=== PATIENT | male | born 1955 | race Caucasian/White ===

== ENCOUNTER 2022-02-02 20:28 | Inpatient (IN) | payer BC ==
[~2022-02-02] VITALS: Ht 177.8 cm; Wt 126.2 kg
[2022-02-02 20:58] LABS: BASOPHILS # (AUTO) 0.1 (0.0-0.1); BASOPHILS % 0.6 % (0.0-1.0); EOSINOPHILS % 0.4 % (0.0-6.0); HEMOGLOBIN 14.5 g/dL (14.0-18.0); LYMPHOCYTES # (AUTO) 1.5 (1.0-3.2); LYMPHOCYTES % 13.5 % (18.0-39.1); MEAN CORPUSCULAR HEMOGLOBIN 28.2 pg (28-32); MEAN CORPUSCULAR HGB CONC 31.5 g/dL (31-35); MEAN CORPUSCULAR VOLUME 89.3 fL (81-99); MONOCYTES # (AUTO) 1.4 (0.2-0.8); MONOCYTES % 12.5 % (4.4-11.3); NEUTROPHILS # (AUTO) 7.8 (2.1-6.9); NEUTROPHILS % 72.4 % (38.7-80.0); PLATELET COUNT 132 x10e3/uL (140-360); RED BLOOD COUNT 5.15 x10e6/uL (4.3-5.7); RED CELL DISTRIBUTION WIDTH 16.1 % (11.7-14.4)
[2022-02-02] MEDS ORDERED: AMIODARONE 900MG 500 ML IV ONE ×2 (21:00→21:15)
[2022-02-02] MEDS ORDERED: AMIODARONE HCL 150 MG/100 ML BAG IV ONE (21:00)
[2022-02-02 21:15] LABS: ALBUMIN 3.5 g/dL (3.5-5.0); ANION GAP 18.9 mmol/L (8-16); CALCIUM 8.9 mg/dL (8.4-10.2); CREATININE, SERUM 1.21 mg/dL (0.72-1.25); POTASSIUM 3.9 mmol/L (3.5-5.1)
[2022-02-02] MEDS ORDERED: AMIODARONE HCL 150MG 100 ML ONE (21:15)
[2022-02-02 21:21] LABS: CREATINE KINASE MB 2.3 ng/mL (0-5.0)
[2022-02-02] MEDS ORDERED: ONDANSETRON HCL INJ 2MG/ML 2ML 2 MG/ML VIAL IV STA ×2 (22:19→22:27)
[2022-02-02] MEDS ORDERED: DEXTROSE 50% SYRINGE 50 ML IV PRN (22:30)
[2022-02-03] VITALS (39 sets, daily range): BP systolic 91–147; BP diastolic 63–133
[2022-02-03] MEDS ORDERED: ONDANSETRON HCL INJ 2MG/ML 2ML 2 MG/ML VIAL IV PRN (04:30)
[2022-02-03] MEDS ORDERED: DEXTROSE 50% SYRINGE 50 ML IV PRN (04:30)
[2022-02-03] MEDS ORDERED: MELATONIN 3 MG TAB PO PRN (04:30)
[2022-02-03] MEDS ORDERED: INSULIN REGULAR, HUMAN 100 UNIT/1 ML SQ SCH (07:30)
[2022-02-03 07:56] LABS: CREATINE KINASE MB 1.8 ng/mL (0-5.0)
[2022-02-03] MEDS: INSULIN LISPRO 100 UNIT/1 ML 3ML VIAL SQ SCH ×4 (08:04→21:00)
[2022-02-03] MEDS: ENOXAPARIN SODIUM INJ 100 MG/ML SYR SC SCH ×2 (08:11→19:43)
[2022-02-03] MEDS: FUROSEMIDE INJ 10 MG/ML 4 ML VIAL IV SCH ×3 (08:34→19:43)
[2022-02-03] MEDS ORDERED: ENOXAPARIN SOD INJ 40 MG/0.4 ML SYR SC SCH (09:00)
[2022-02-03] MEDS ORDERED: LISINOPRIL 2.5 MG TAB PO SCH (09:00)
[2022-02-03] MEDS ORDERED: METOPROLOL SUCCINATE 25 MG TAB XL PO SCH (09:00)
[2022-02-03] MEDS ORDERED: METFORMIN HCL500 MG PO (11:09)
[2022-02-03] MEDS ORDERED: ELIQUIS5 MG PO (11:09)
[2022-02-03] MEDS ORDERED: PRAVASTATIN SOD40 MG PO (11:09)
[2022-02-03] MEDS ORDERED: METOLAZONE5 MG PO (11:09)
[2022-02-03] MEDS ORDERED: METOPROLOL TART50 MG PO (11:09)
[2022-02-03 15:49] LABS: CREATINE KINASE MB 1.7 ng/mL (0-5.0)
[2022-02-03] MEDS: VALSARTAN/SACUBITRIL 24MG/26MG 1 EA TAB PO SCH (19:30)
[2022-02-03] MEDS: ATORVASTATIN 20 MG TAB PO SCH (19:43)
[2022-02-03] MEDS ORDERED: AMIODARONE 900MG 500 ML IV ONE (20:19)
[2022-02-04] VITALS (18 sets, daily range): BP systolic 93–117; BP diastolic 68–88
[2022-02-04 05:03] LABS: BASOPHILS # (AUTO) 0.1 (0.0-0.1); BASOPHILS % 0.9 % (0.0-1.0); EOSINOPHILS # (AUTO) 0.1 (0.0-0.4); EOSINOPHILS % 1.3 % (0.0-6.0); HEMATOCRIT 44.3 % (38.2-49.6); HEMOGLOBIN 14.5 g/dL (14.0-18.0); LYMPHOCYTES % 19.3 % (18.0-39.1); MEAN CORPUSCULAR HEMOGLOBIN 28.4 pg (28-32); MEAN CORPUSCULAR HGB CONC 32.7 g/dL (31-35); MEAN CORPUSCULAR VOLUME 86.9 fL (81-99); MONOCYTES # (AUTO) 1.5 (0.2-0.8); NEUTROPHILS # (AUTO) 6.4 (2.1-6.9); PLATELET COUNT 158 x10e3/uL (140-360); RED CELL DISTRIBUTION WIDTH 15.9 % (11.7-14.4)
[2022-02-04 05:29] LABS: ANION GAP 17.9 mmol/L (8-16); CALCIUM 9.3 mg/dL (8.4-10.2); CREATININE, SERUM 1.04 mg/dL (0.72-1.25)
[2022-02-04 05:40] LABS: POTASSIUM 2.9 mmol/L (3.5-5.1)
[2022-02-04] MEDS ORDERED: POTASSIUM CHLORIDE 20 MEQ TAB CR PO STA (05:45)
[2022-02-04] MEDS ORDERED: POTASSIUM CHLORIDE 20MEQ/100ML 100 ML IV ONE (05:45)
[2022-02-04] MEDS ORDERED: SODIUM CHLORIDE 0.9% 250ML 250 ML ONE ×2 (06:38→21:37)
[2022-02-04] MEDS: INSULIN LISPRO 100 UNIT/1 ML 3ML VIAL SQ SCH ×4 (07:30→20:56)
[2022-02-04] MEDS ORDERED: AMIODARONE HCL 200 MG TAB PO SCH (09:00)
[2022-02-04] MEDS ORDERED: APIXABAN 5 MG TABLET PO SCH (09:00)
[2022-02-04] MEDS: FUROSEMIDE INJ 10 MG/ML 4 ML VIAL IV SCH ×2 (10:05→20:55)
[2022-02-04] MEDS: AMIODARONE HCL 200 MG TAB PO SCH ×2 (10:06→17:16)
[2022-02-04] MEDS: VALSARTAN/SACUBITRIL 24MG/26MG 1 EA TAB PO SCH ×2 (10:06→21:32)
[2022-02-04] MEDS: Clindamycin INJ 300 MG/50 ML 50 ML IV SCH ×2 (12:53→21:36)
[2022-02-04] MEDS: TRAMADOL HCL 50 MG TAB PO PRN ×2 (13:19→20:08)
[2022-02-04] MEDS: METOLAZONE 5 MG TAB PO SCH (13:23)
[2022-02-04] MEDS: BALSAM PERU/CASTOR OIL 60 GM OINT...G. TP SCH (13:23)
[2022-02-04] MEDS: METOPROLOL SUCCINATE 25 MG TAB XL PO SCH (16:54)
[2022-02-04] MEDS ORDERED: POTASSIUM CHLORIDE 20 MEQ TAB CR PO SCH (17:00)
[2022-02-04] MEDS: ATORVASTATIN 20 MG TAB PO SCH (21:32)
[2022-02-05] VITALS (9 sets, daily range): BP systolic 82–99; BP diastolic 58–78
[2022-02-05] MEDS: TRAMADOL HCL 50 MG TAB PO PRN (03:42)
[2022-02-05] MEDS ORDERED: DILTIAZEM HCL 5 MG/ML 5 ML VIAL IV STA (04:49)
[2022-02-05] MEDS: Clindamycin INJ 300 MG/50 ML 50 ML IV SCH ×3 (06:05→22:39)
[2022-02-05] MEDS: BUDESONIDE 0.5MG/2 ML NEB INH SCH ×2 (06:20→19:25)
[2022-02-05 06:38] LABS: BASOPHILS # (AUTO) 0.1 (0.0-0.1); BASOPHILS % 0.7 % (0.0-1.0); EOSINOPHILS # (AUTO) 0.2 (0.0-0.4); EOSINOPHILS % 1.8 % (0.0-6.0); HEMATOCRIT 43.4 % (38.2-49.6); HEMOGLOBIN 13.9 g/dL (14.0-18.0); LYMPHOCYTES # (AUTO) 1.4 (1.0-3.2); LYMPHOCYTES % 16.7 % (18.0-39.1); MEAN CORPUSCULAR HEMOGLOBIN 27.9 pg (28-32); MONOCYTES # (AUTO) 1.1 (0.2-0.8); MONOCYTES % 13.5 % (4.4-11.3); NEUTROPHILS # (AUTO) 5.6 (2.1-6.9); NEUTROPHILS % 66.9 % (38.7-80.0); PLATELET COUNT 173 x10e3/uL (140-360); RED BLOOD COUNT 4.99 x10e6/uL (4.3-5.7); RED CELL DISTRIBUTION WIDTH 15.9 % (11.7-14.4)
[2022-02-05 07:04] LABS: ALBUMIN 2.9 g/dL (3.5-5.0); ALBUMIN/GLOBULIN RATIO 0.9 (0.8-2.0); ANION GAP 14.1 mmol/L (8-16); CALCIUM 8.6 mg/dL (8.4-10.2); CREATININE, SERUM 0.82 mg/dL (0.72-1.25); POTASSIUM 3.1 mmol/L (3.5-5.1)
[2022-02-05] MEDS: INSULIN LISPRO 100 UNIT/1 ML 3ML VIAL SQ SCH ×4 (08:30→21:45)
[2022-02-05] MEDS: VALSARTAN/SACUBITRIL 24MG/26MG 1 EA TAB PO SCH ×2 (09:00→21:00)
[2022-02-05] MEDS: ENOXAPARIN SODIUM INJ 100 MG/ML SYR SC SCH ×2 (09:30→21:44)
[2022-02-05] MEDS: ACETAMINOPHEN 325 MG TAB PO PRN ×2 (11:05→22:00)
[2022-02-05] MEDS: AMIODARONE HCL 200 MG TAB PO SCH ×2 (12:50→17:21)
[2022-02-05] MEDS: FUROSEMIDE INJ 10 MG/ML 4 ML VIAL IV SCH ×2 (12:50→21:00)
[2022-02-05] MEDS: BALSAM PERU/CASTOR OIL 60 GM OINT...G. TP SCH (13:30)
[2022-02-05] MEDS: METOPROLOL SUCCINATE 25 MG TAB XL PO SCH (16:45)
[2022-02-05] MEDS: METOLAZONE 5 MG TAB PO SCH (17:21)
[2022-02-05] MEDS: POTASSIUM CHLORIDE 10MEQ EA PO SCH (21:44)
[2022-02-06] VITALS (7 sets, daily range): BP systolic 88–115; BP diastolic 62–92
[2022-02-06] MEDS: TRAMADOL HCL 50 MG TAB PO PRN ×4 (01:29→23:08)
[2022-02-06] MEDS: BUDESONIDE 0.5MG/2 ML NEB INH SCH ×2 (06:15→19:30)
[2022-02-06] MEDS: Clindamycin INJ 300 MG/50 ML 50 ML IV SCH ×3 (06:40→21:10)
[2022-02-06] MEDS: INSULIN LISPRO 100 UNIT/1 ML 3ML VIAL SQ SCH ×4 (07:30→21:56)
[2022-02-06] MEDS: POTASSIUM CHLORIDE 10MEQ EA PO SCH (07:53)
[2022-02-06] MEDS: VALSARTAN/SACUBITRIL 24MG/26MG 1 EA TAB PO SCH ×2 (07:53→21:00)
[2022-02-06] MEDS: FUROSEMIDE INJ 10 MG/ML 4 ML VIAL IV SCH ×2 (07:53→21:00)
[2022-02-06] MEDS: ENOXAPARIN SODIUM INJ 100 MG/ML SYR SC SCH (07:53)
[2022-02-06] MEDS: METOLAZONE 5 MG TAB PO SCH (07:53)
[2022-02-06] MEDS: BALSAM PERU/CASTOR OIL 60 GM OINT...G. TP SCH (09:07)
[2022-02-06] MEDS ORDERED: METOPROLOL TARTRATE INJ 1 MG/ML VIAL IV PRN (10:45)
[2022-02-06] MEDS: ACETAMINOPHEN 325 MG TAB PO PRN ×2 (11:01→18:45)
[2022-02-06] MEDS ORDERED: SYMBICORT 16010.2 GM INH (14:40)
[2022-02-06] MEDS ORDERED: super beta prostate PO (14:40)
[2022-02-06] MEDS: METOPROLOL SUCCINATE 25 MG TAB XL PO SCH (16:23)
[2022-02-07] VITALS (18 sets, daily range): BP systolic 89–119; BP diastolic 53–96
[2022-02-07] MEDS ORDERED: SODIUM CHLORIDE 0.9% 1000ML 1,000 ML IV SCH (03:00)
[2022-02-07 06:14] LABS: BASOPHILS # (AUTO) 0.1 (0.0-0.1); BASOPHILS % 1.1 % (0.0-1.0); EOSINOPHILS # (AUTO) 0.2 (0.0-0.4); EOSINOPHILS % 2.4 % (0.0-6.0); HEMATOCRIT 47.6 % (38.2-49.6); LYMPHOCYTES # (AUTO) 1.6 (1.0-3.2); LYMPHOCYTES % 19.2 % (18.0-39.1); MEAN CORPUSCULAR HGB CONC 31.5 g/dL (31-35); MONOCYTES # (AUTO) 1.2 (0.2-0.8); MONOCYTES % 14.7 % (4.4-11.3); NEUTROPHILS # (AUTO) 5.2 (2.1-6.9); NEUTROPHILS % 62.1 % (38.7-80.0); PLATELET COUNT 239 x10e3/uL (140-360); RED BLOOD COUNT 5.35 x10e6/uL (4.3-5.7); RED CELL DISTRIBUTION WIDTH 16.4 % (11.7-14.4)
[2022-02-07] MEDS: Clindamycin INJ 300 MG/50 ML 50 ML IV SCH ×3 (06:17→21:35)
[2022-02-07 06:31] LABS: INR 1.08
[2022-02-07 06:32] LABS: PARTIAL THROMBOPLASTIN TIME 29.7 seconds (23.8-35.5)
[2022-02-07 06:51] LABS: ALBUMIN 2.9 g/dL (3.5-5.0); ALBUMIN/GLOBULIN RATIO 0.9 (0.8-2.0); ANION GAP 15.7 mmol/L (8-16); CALCIUM 8.8 mg/dL (8.4-10.2); CREATININE, SERUM 0.79 mg/dL (0.72-1.25); MAGNESIUM 1.4 MG/DL (1.3-2.1); POTASSIUM 3.7 mmol/L (3.5-5.1)
[2022-02-07 07:09] LABS: CHOL/HDL RATIO 4.6 (3.9-4.7)
[2022-02-07] MEDS: INSULIN LISPRO 100 UNIT/1 ML 3ML VIAL SQ SCH ×4 (07:30→21:00)
[2022-02-07] MEDS: BUDESONIDE 0.5MG/2 ML NEB INH SCH ×2 (07:30→19:05)
[2022-02-07] MEDS ORDERED: LIDOCAINE HCL 2% LOCAL 20 ML VIAL ONE (07:52)
[2022-02-07] MEDS ORDERED: HEPARIN SOD (PORCINE) 1000 UNIT/ML 30ML ONE (07:52)
[2022-02-07] MEDS ORDERED: NITROGLYCERIN/D5W 200 MCG/ML 250 ML ONE (07:53)
[2022-02-07] MEDS ORDERED: SODIUM CHLORIDE 0.9% 1000ML 1,000 ML ONE (07:53)
[2022-02-07] MEDS ORDERED: HEPARIN SOD/SOD CHLORIDE 2,000 ML ONE (07:53)
[2022-02-07] MEDS ORDERED: IOPAMIDOL 370 MG/ML 100 ML INFUS..BTL INJ ONE (07:53)
[2022-02-07] MEDS ORDERED: VERAPAMIL HCL 2.5 MG/ML 2 ML VIAL ONE (07:54)
[2022-02-07] MEDS ORDERED: MIDAZOLAM HCL 2 MG/2 ML VIAL ONE (08:29)
[2022-02-07] MEDS ORDERED: FENTANYL CITRATE/PF 100MCG/2 ML INJ ONE (08:29)
[2022-02-07] MEDS: METOLAZONE 5 MG TAB PO SCH (08:45)
[2022-02-07] MEDS: POTASSIUM CHLORIDE 10MEQ EA PO SCH (08:45)
[2022-02-07] MEDS: BALSAM PERU/CASTOR OIL 60 GM OINT...G. TP SCH (08:45)
[2022-02-07] MEDS: FUROSEMIDE INJ 10 MG/ML 4 ML VIAL IV SCH ×2 (08:45→21:35)
[2022-02-07] MEDS: VALSARTAN/SACUBITRIL 24MG/26MG 1 EA TAB PO SCH ×2 (08:45→21:00)
[2022-02-07] MEDS: ASPIRIN 81 MG ENTERIC COATED PO SCH (09:30)
[2022-02-07] MEDS: TRAMADOL HCL 50 MG TAB PO PRN ×3 (10:59→23:09)
[2022-02-07] MEDS: METOPROLOL SUCCINATE 25 MG TAB XL PO SCH (17:02)
[2022-02-08] VITALS (9 sets, daily range): BP systolic 94–122; BP diastolic 62–103
[2022-02-08] MEDS: ACETAMINOPHEN 325 MG TAB PO PRN ×2 (03:34→23:39)
[2022-02-08 05:20] LABS: BASOPHILS # (AUTO) 0.1 (0.0-0.1); BASOPHILS % 0.6 % (0.0-1.0); EOSINOPHILS # (AUTO) 0.2 (0.0-0.4); EOSINOPHILS % 2.1 % (0.0-6.0); HEMOGLOBIN 14.1 g/dL (14.0-18.0); LYMPHOCYTES # (AUTO) 1.6 (1.0-3.2); LYMPHOCYTES % 17.9 % (18.0-39.1); MEAN CORPUSCULAR HEMOGLOBIN 27.8 pg (28-32); MEAN CORPUSCULAR VOLUME 86.6 fL (81-99); MONOCYTES # (AUTO) 1.3 (0.2-0.8); MONOCYTES % 14.7 % (4.4-11.3); NEUTROPHILS # (AUTO) 5.6 (2.1-6.9); NEUTROPHILS % 64.1 % (38.7-80.0); PLATELET COUNT 249 x10e3/uL (140-360); RED BLOOD COUNT 5.08 x10e6/uL (4.3-5.7); RED CELL DISTRIBUTION WIDTH 15.9 % (11.7-14.4)
[2022-02-08 05:45] LABS: ALBUMIN 2.9 g/dL (3.5-5.0); ALBUMIN/GLOBULIN RATIO 0.9 (0.8-2.0); ANION GAP 12.1 mmol/L (8-16); CALCIUM 8.4 mg/dL (8.4-10.2); CREATININE, SERUM 0.74 mg/dL (0.72-1.25); POTASSIUM 3.1 mmol/L (3.5-5.1)
[2022-02-08] MEDS: Clindamycin INJ 300 MG/50 ML 50 ML IV SCH ×3 (05:54→21:37)
[2022-02-08] MEDS: BUDESONIDE 0.5MG/2 ML NEB INH SCH ×2 (06:44→19:35)
[2022-02-08] MEDS: INSULIN LISPRO 100 UNIT/1 ML 3ML VIAL SQ SCH ×4 (07:29→20:36)
[2022-02-08] MEDS: FUROSEMIDE INJ 10 MG/ML 4 ML VIAL IV SCH (09:00)
[2022-02-08] MEDS: VALSARTAN/SACUBITRIL 24MG/26MG 1 EA TAB PO SCH ×2 (09:19→21:00)
[2022-02-08] MEDS: BALSAM PERU/CASTOR OIL 60 GM OINT...G. TP SCH (09:19)
[2022-02-08] MEDS: ASPIRIN 81 MG ENTERIC COATED PO SCH (09:19)
[2022-02-08] MEDS: POTASSIUM CHLORIDE 10MEQ EA PO SCH (09:23)
[2022-02-08] MEDS: APIXABAN 5 MG TABLET PO SCH ×2 (09:57→21:36)
[2022-02-08] MEDS: FUROSEMIDE 40 MG TAB PO SCH (09:57)
[2022-02-08] MEDS ORDERED: POTASSIUM CHLORIDE 20 MEQ TAB CR PO ONE ×2 (10:00→11:30)
[2022-02-08] MEDS ORDERED: VENELEX OINTMEN60 GM TP (11:03)
[2022-02-08] MEDS ORDERED: ULTRAM 50MG50 MG PO (11:03)
[2022-02-08] MEDS ORDERED: CLINDAMYCIN HC300 MG PO (11:03)
[2022-02-08] MEDS ORDERED: FUROSEMIDE40 MG PO ×2 (11:03)
[2022-02-08] MEDS ORDERED: Valsartan/Sacubitril 24MG/26MG PO (11:03)
[2022-02-08] MEDS ORDERED: MELATONIN3 MG PO (11:03)
[2022-02-08] MEDS ORDERED: K DUR10 MEQ PO (11:03)
[2022-02-08] MEDS ORDERED: TOPROL XL25 MG PO (11:03)
[2022-02-08] MEDS ORDERED: ACETAMINOPHEN325 M1 PO (11:03)
[2022-02-08] MEDS ORDERED: ASPIRIN EC81 MG PO (11:03)
[2022-02-08] MEDS: TRAMADOL HCL 50 MG TAB PO PRN ×2 (12:56→19:40)
[2022-02-08] MEDS: MUPIROCIN 2% OINT 22 GM TUBE TOP SCH (16:53)
[2022-02-08] MEDS: SILVER SULFADIAZINE 50GM CREAM TOP SCH (16:53)
[2022-02-08] MEDS: METOPROLOL SUCCINATE 25 MG TAB XL PO SCH (16:53)
[2022-02-09 04:15] VITALS: BP 116/86
[2022-02-09 05:01] LABS: BASOPHILS # (AUTO) 0.1 (0.0-0.1); BASOPHILS % 0.8 % (0.0-1.0); EOSINOPHILS # (AUTO) 0.3 (0.0-0.4); EOSINOPHILS % 2.7 % (0.0-6.0); HEMATOCRIT 46.9 % (38.2-49.6); HEMOGLOBIN 15.4 g/dL (14.0-18.0); LYMPHOCYTES % 19.7 % (18.0-39.1); MEAN CORPUSCULAR HEMOGLOBIN 27.9 pg (28-32); MEAN CORPUSCULAR HGB CONC 32.8 g/dL (31-35); MONOCYTES # (AUTO) 1.3 (0.2-0.8); MONOCYTES % 13.1 % (4.4-11.3); NEUTROPHILS # (AUTO) 6.4 (2.1-6.9); NEUTROPHILS % 63.3 % (38.7-80.0); PLATELET COUNT 293 x10e3/uL (140-360); RED BLOOD COUNT 5.52 x10e6/uL (4.3-5.7); RED CELL DISTRIBUTION WIDTH 15.9 % (11.7-14.4)
[2022-02-09 05:24] LABS: ALBUMIN/GLOBULIN RATIO 0.8 (0.8-2.0); CALCIUM 9.2 mg/dL (8.4-10.2); CREATININE, SERUM 0.83 mg/dL (0.72-1.25); MAGNESIUM 1.3 MG/DL (1.3-2.1); PHOSPHORUS 3.5 MG/DL (2.3-4.7)
[2022-02-09] MEDS: Clindamycin INJ 300 MG/50 ML 50 ML IV SCH (06:25)
[2022-02-09] MEDS: BUDESONIDE 0.5MG/2 ML NEB INH SCH ×2 (07:15→19:55)
[2022-02-09] MEDS: INSULIN LISPRO 100 UNIT/1 ML 3ML VIAL SQ SCH ×4 (07:30→21:15)
[2022-02-09 08:11] VITALS: BP 116/86
[2022-02-09] MEDS ORDERED: MAGNESIUM SULFATE 2GM/50ML 50 ML IV ONE ×3 (09:00→14:15)
[2022-02-09] MEDS ORDERED: MUPIROCIN 2% OINT 22 GM TUBE TOP SCH (09:00)
[2022-02-09] MEDS ORDERED: SODIUM CHLORIDE 0.9% 1000ML 1,000 ML ONE (09:25)
[2022-02-09] MEDS ORDERED: BENZOCAINE 20% SPR 60 ML CAN ONE (09:25)
[2022-02-09 10:00] VITALS: BP 97/79
[2022-02-09] MEDS ORDERED: MAGNESIUM SULFATE 2GM/50ML IV ONE (10:15)
[2022-02-09] MEDS ORDERED: POTASSIUM CHLORIDE 20 MEQ TAB CR PO ONE ×2 (11:15→14:00)
[2022-02-09] MEDS: DIGOXIN INJ 0.25 MG/ML 2 ML AMP IV SCH ×3 (11:45→18:45)
[2022-02-09] MEDS: APIXABAN 5 MG TABLET PO SCH ×2 (11:50→21:33)
[2022-02-09] MEDS: FUROSEMIDE 40 MG TAB PO SCH ×3 (12:00→18:25)
[2022-02-09] MEDS: ASPIRIN 81 MG ENTERIC COATED PO SCH (12:21)
[2022-02-09] MEDS: TRAMADOL HCL 50 MG TAB PO PRN ×2 (12:22→21:34)
[2022-02-09] MEDS: CLINDAMYCIN HCL 150 MG CAP PO SCH ×2 (14:26→21:34)
[2022-02-09] MEDS: METOPROLOL TARTRATE 25 MG TAB PO SCH ×2 (14:27→18:25)
[2022-02-09] MEDS: ACETAMINOPHEN 325 MG TAB PO PRN (16:44)
[2022-02-09] MEDS: MUPIROCIN 2% OINT 22 GM TUBE TOP SCH ×2 (17:00→17:38)
[2022-02-09] MEDS: SILVER SULFADIAZINE 50GM CREAM TOP SCH ×2 (17:00→17:38)
[2022-02-09] MEDS: BALSAM PERU/CASTOR OIL 60 GM OINT...G. TP SCH (17:38)
[2022-02-09] MEDS ORDERED: HYDROMORPHONE 1MG/1ML INJ IV ONE (17:40)
[2022-02-09] MEDS: POTASSIUM CHLORIDE 10MEQ EA PO SCH (19:14)
[2022-02-09] MEDS ORDERED: PROPOFOL IV EMULSION 10 MG/ML 20 ML VIAL ONE (19:37)
[2022-02-09] MEDS ORDERED: POVIDONE IODINE 0.05% 0.05 % ML PO ONE (19:37)
[2022-02-09] MEDS ORDERED: ETOMIDATE 2 MG/ML 10 ML INJ IV ONE (19:37)
[2022-02-09 20:30] VITALS: BP 93/68
[2022-02-09 21:00] VITALS: BP 93/68
[2022-02-10 00:35] VITALS: BP 97/75
[2022-02-10] MEDS: METOPROLOL TARTRATE 25 MG TAB PO SCH ×4 (01:00→17:42)
[2022-02-10] MEDS: TRAMADOL HCL 50 MG TAB PO PRN ×3 (04:19→19:22)
[2022-02-10] MEDS: CLINDAMYCIN HCL 150 MG CAP PO SCH ×3 (05:20→21:32)
[2022-02-10 05:49] VITALS: BP 102/62
[2022-02-10] MEDS: BUDESONIDE 0.5MG/2 ML NEB INH SCH ×2 (06:40→18:59)
[2022-02-10 07:47] VITALS: BP 102/62
[2022-02-10] MEDS: INSULIN LISPRO 100 UNIT/1 ML 3ML VIAL SQ SCH ×4 (08:15→21:34)
[2022-02-10] MEDS: POTASSIUM CHLORIDE 10MEQ EA PO SCH (08:50)
[2022-02-10] MEDS: DIGOXIN 0.125 MG TAB PO SCH (08:50)
[2022-02-10] MEDS: APIXABAN 5 MG TABLET PO SCH ×2 (08:50→21:32)
[2022-02-10] MEDS: ASPIRIN 81 MG ENTERIC COATED PO SCH (08:50)
[2022-02-10] MEDS: FUROSEMIDE 40 MG TAB PO SCH ×2 (08:51→16:14)
[2022-02-10] MEDS: MUPIROCIN 2% OINT 22 GM TUBE TOP SCH ×3 (09:00→17:47)
[2022-02-10] MEDS: SILVER SULFADIAZINE 50GM CREAM TOP SCH ×2 (09:00→17:47)
[2022-02-10 09:32] LABS: BASOPHILS # (AUTO) 0.1 (0.0-0.1); BASOPHILS % 1.2 % (0.0-1.0); EOSINOPHILS # (AUTO) 0.2 (0.0-0.4); EOSINOPHILS % 2.3 % (0.0-6.0); HEMATOCRIT 48.4 % (38.2-49.6); HEMOGLOBIN 15.5 g/dL (14.0-18.0); LYMPHOCYTES # (AUTO) 1.4 (1.0-3.2); LYMPHOCYTES % 14.1 % (18.0-39.1); MEAN CORPUSCULAR HEMOGLOBIN 27.6 pg (28-32); MEAN CORPUSCULAR VOLUME 86.3 fL (81-99); MONOCYTES # (AUTO) 1.3 (0.2-0.8); MONOCYTES % 13.2 % (4.4-11.3); NEUTROPHILS # (AUTO) 6.9 (2.1-6.9); NEUTROPHILS % 68.7 % (38.7-80.0); PLATELET COUNT 306 x10e3/uL (140-360); RED BLOOD COUNT 5.61 x10e6/uL (4.3-5.7)
[2022-02-10 09:55] LABS: ALBUMIN 2.9 g/dL (3.5-5.0); ALBUMIN/GLOBULIN RATIO 0.8 (0.8-2.0); ANION GAP 13.3 mmol/L (8-16); CALCIUM 8.9 mg/dL (8.4-10.2); CREATININE, SERUM 0.8 mg/dL (0.72-1.25); MAGNESIUM 1.6 MG/DL (1.3-2.1); POTASSIUM 3.3 mmol/L (3.5-5.1)
[2022-02-10] MEDS ORDERED: POTASSIUM CHLORIDE 20 MEQ TAB CR PO ONE (11:00)
[2022-02-10] MEDS: BALSAM PERU/CASTOR OIL 60 GM OINT...G. TP SCH (17:47)
[2022-02-10 19:44] VITALS: BP 116/77
[2022-02-10 21:00] VITALS: BP 116/77
[2022-02-11] MEDS: METOPROLOL TARTRATE 25 MG TAB PO SCH ×4 (00:14→12:00)
[2022-02-11] MEDS: TRAMADOL HCL 50 MG TAB PO PRN ×3 (02:29→13:18)
[2022-02-11 05:22] VITALS: BP 120/96
[2022-02-11] MEDS: CLINDAMYCIN HCL 150 MG CAP PO SCH (05:39)
[2022-02-11 06:14] LABS: BASOPHILS # (AUTO) 0.1 (0.0-0.1); BASOPHILS % 1.2 % (0.0-1.0); EOSINOPHILS # (AUTO) 0.3 (0.0-0.4); HEMATOCRIT 49.8 % (38.2-49.6); HEMOGLOBIN 16.3 g/dL (14.0-18.0); LYMPHOCYTES # (AUTO) 2.1 (1.0-3.2); LYMPHOCYTES % 20.1 % (18.0-39.1); MEAN CORPUSCULAR HEMOGLOBIN 27.8 pg (28-32); MEAN CORPUSCULAR HGB CONC 32.7 g/dL (31-35); MONOCYTES # (AUTO) 1.1 (0.2-0.8); MONOCYTES % 10.6 % (4.4-11.3); NEUTROPHILS # (AUTO) 6.8 (2.1-6.9); NEUTROPHILS % 64.7 % (38.7-80.0); PLATELET COUNT 333 x10e3/uL (140-360); RED BLOOD COUNT 5.86 x10e6/uL (4.3-5.7); RED CELL DISTRIBUTION WIDTH 15.9 % (11.7-14.4)
[2022-02-11 06:34] LABS: ANION GAP 16.6 mmol/L (8-16); CALCIUM 9.3 mg/dL (8.4-10.2); CREATININE, SERUM 0.77 mg/dL (0.72-1.25); POTASSIUM 3.6 mmol/L (3.5-5.1)
[2022-02-11] MEDS: BUDESONIDE 0.5MG/2 ML NEB INH SCH (06:35)
[2022-02-11 07:59] VITALS: BP 122/96
[2022-02-11 08:04] VITALS: BP 122/96
[2022-02-11] MEDS: ASPIRIN 81 MG ENTERIC COATED PO SCH (08:24)
[2022-02-11] MEDS: FUROSEMIDE 40 MG TAB PO SCH (08:24)
[2022-02-11] MEDS: POTASSIUM CHLORIDE 10MEQ EA PO SCH (08:24)
[2022-02-11] MEDS: APIXABAN 5 MG TABLET PO SCH (08:24)
[2022-02-11] MEDS: MUPIROCIN 2% OINT 22 GM TUBE TOP SCH (08:25)
[2022-02-11] MEDS: INSULIN LISPRO 100 UNIT/1 ML 3ML VIAL SQ SCH ×2 (08:25→12:17)
[2022-02-11] MEDS: BALSAM PERU/CASTOR OIL 60 GM OINT...G. TP SCH (08:25)
[2022-02-11] MEDS: SILVER SULFADIAZINE 50GM CREAM TOP SCH (08:25)
[2022-02-11] MEDS: DIGOXIN 0.125 MG TAB PO SCH (08:25)
[2022-02-11 11:52] VITALS: BP 101/86
[2022-02-11] MEDS ORDERED: SILVADENE20 GM TOP (12:17)
[2022-02-11] MEDS ORDERED: MUPIROCIN22 GM TOP (12:17)
[2022-02-11] MEDS ORDERED: DIGOXIN125 MCG PO (12:17)
[2022-02-11] MEDS ORDERED: LOPRESSOR25 MG PO (12:17)
[2022-02-11] MEDS ORDERED: ONDANSETRON HCL 4 MG ORAL DISINTEGRATING TAB PO PRN (12:30)
[2022-02-11] MEDS ORDERED: MAGNESIUM OXIDE 400 MG TAB PO ONE (13:15)
[2022-02-11] MEDS ORDERED: POTASSIUM CHLORIDE 20 MEQ TAB CR PO ONE (13:15)
[2022-02-11] MEDS ORDERED: METOPROLOL TARTRATE 25 MG TAB PO SCH (14:00)
== END 2022-02-11 13:50 | disposition home or self-care (01) | DRG 286 ==
LOC: ER 21:02 → ERHOLD 22:30 → ICU 23:53 → MED/SURG2 02-04 16:38
PROVIDERS: ADMIT Internal Medicine; ATTEND Internal Medicine
PROC: 4A023N7 Measurement of Cardiac Sampling and Pressure, Left Heart, Percutaneous Approach (ICD-10-PCS; principal; 2022-02-07)
PROC: B2111ZZ Fluoroscopy of Multiple Coronary Arteries using Low Osmolar Contrast (ICD-10-PCS; 2022-02-07)
PROC: B2151ZZ Fluoroscopy of Left Heart using Low Osmolar Contrast (ICD-10-PCS; 2022-02-07)
PROC: B24BZZ4 Ultrasonography of Heart with Aorta, Transesophageal (ICD-10-PCS; 2022-02-09)
DX: I11.0 Hypertensive heart disease with heart failure (principal); I50.23 Acute on chronic systolic (congestive) heart failure; Z68.41 Body mass index [BMI] 40.0-44.9, adult; I31.3 Pericardial effusion (noninflammatory); E87.1 Hypo-osmolality and hyponatremia; L97.429 Non-pressure chronic ulcer of left heel and midfoot with unspecified severity; I48.19 Other persistent atrial fibrillation; L03.116 Cellulitis of left lower limb; L03.115 Cellulitis of right lower limb; E11.9 Type 2 diabetes mellitus without complications; E66.01 Morbid (severe) obesity due to excess calories; E78.5 Hyperlipidemia, unspecified; I25.10 Atherosclerotic heart disease of native coronary artery without angina pectoris; E11.65 Type 2 diabetes mellitus with hyperglycemia; E83.42 Hypomagnesemia; I95.1 Orthostatic hypotension; I87.2 Venous insufficiency (chronic) (peripheral); E11.69 Type 2 diabetes mellitus with other specified complication; E11.621 Type 2 diabetes mellitus with foot ulcer; R60.0 Localized edema; I42.8 Other cardiomyopathies; I89.0 Lymphedema, not elsewhere classified; Z88.5 Allergy status to narcotic agent; Z88.0 Allergy status to penicillin; J45.909 Unspecified asthma, uncomplicated; Z20.822 Contact with and (suspected) exposure to COVID-19
CPT/HCPCS: 36415; 71045; 76705; 80048; 80053; 80061; 82550; 82553; 82948; 83036; 83735; 83880; 84100; 84484; 85025; 85610; 85730; 93005; 93306; 93307; 93312; 93325; 93458; 94640; 94799; 96372; 97139; 99152; 99251; 99284; C1887; J1160; J1644; J1650; J1940; J2001; J2250; J2405; J3010; J3475; J3480; J7030; J7050; Q9967; U0002

== ENCOUNTER → 2022-02-14 | Outpatient (CLI) | payer BC ==
[~2022-02-14] MED LIST: ACETAMINOPHEN325 M1 PO; ASPIRIN EC81 MG PO; CLINDAMYCIN HC300 MG PO; COLLAGENASE OINTMENT 30 GM TUBE ONE; DIGOXIN125 MCG PO; ELIQUIS5 MG PO; FUROSEMIDE40 MG PO; K DUR10 MEQ PO; LIDOCAINE VISC 2% SOLN 15 ML UDC ONE; LOPRESSOR25 MG PO; MELATONIN3 MG PO; METFORMIN HCL500 MG PO; METOLAZONE5 MG PO; METOPROLOL TART50 MG PO; MUPIROCIN22 GM TOP; PRAVASTATIN SOD40 MG PO; SILVADENE20 GM TOP; SYMBICORT 16010.2 GM INH; TOPROL XL25 MG PO; ULTRAM 50MG50 MG PO; VENELEX OINTMEN60 GM TP; Valsartan/Sacubitril 24MG/26MG PO; super beta prostate PO
== END ==
LOC: WCC 10:32
PROVIDERS: ATTEND Internal Medicine Infectious Disease
DX: E11.622 Type 2 diabetes mellitus with other skin ulcer (principal); E11.21 Type 2 diabetes mellitus with diabetic nephropathy; L97.811 Non-pressure chronic ulcer of other part of right lower leg limited to breakdown of skin; L97.329 Non-pressure chronic ulcer of left ankle with unspecified severity; L03.119 Cellulitis of unspecified part of limb; I87.2 Venous insufficiency (chronic) (peripheral); R60.9 Edema, unspecified; I10 Essential (primary) hypertension; E78.5 Hyperlipidemia, unspecified; I48.91 Unspecified atrial fibrillation; E66.01 Morbid (severe) obesity due to excess calories
CPT/HCPCS: 36415; 82948

== ENCOUNTER → 2022-02-21 | Outpatient (CLI) | payer BC ==
[~2022-02-21] MED LIST changes: -COLLAGENASE OINTMENT 30 GM TUBE ONE; -LIDOCAINE VISC 2% SOLN 15 ML UDC ONE
== END ==
LOC: WCC 14:47
PROVIDERS: ATTEND Internal Medicine Infectious Disease
DX: E11.622 Type 2 diabetes mellitus with other skin ulcer (principal); E11.21 Type 2 diabetes mellitus with diabetic nephropathy; L97.811 Non-pressure chronic ulcer of other part of right lower leg limited to breakdown of skin; L97.329 Non-pressure chronic ulcer of left ankle with unspecified severity; L03.119 Cellulitis of unspecified part of limb; I87.2 Venous insufficiency (chronic) (peripheral); R60.9 Edema, unspecified; I10 Essential (primary) hypertension; E78.5 Hyperlipidemia, unspecified; I48.91 Unspecified atrial fibrillation; E66.01 Morbid (severe) obesity due to excess calories

== ENCOUNTER → 2022-02-28 | Outpatient (CLI) | payer BC ==
[~2022-02-28] MED LIST changes: +COLLAGENASE OINTMENT 30 GM TUBE ONE; +TRYPSIN/BALSAM PERU/CASTOR OIL ONE
== END ==
LOC: WCC 14:25
PROVIDERS: ATTEND Internal Medicine Infectious Disease
DX: E11.622 Type 2 diabetes mellitus with other skin ulcer (principal); E11.21 Type 2 diabetes mellitus with diabetic nephropathy; L03.818 Cellulitis of other sites; L03.119 Cellulitis of unspecified part of limb; I87.2 Venous insufficiency (chronic) (peripheral); R60.9 Edema, unspecified; I10 Essential (primary) hypertension; I48.91 Unspecified atrial fibrillation; E78.5 Hyperlipidemia, unspecified; E66.01 Morbid (severe) obesity due to excess calories

== ENCOUNTER → 2022-03-07 | Outpatient (CLI) | payer BC ==
[~2022-03-07] MED LIST changes: -COLLAGENASE OINTMENT 30 GM TUBE ONE; -TRYPSIN/BALSAM PERU/CASTOR OIL ONE
== END ==
LOC: WCC 10:32
PROVIDERS: ATTEND Internal Medicine Infectious Disease
DX: E11.622 Type 2 diabetes mellitus with other skin ulcer (principal); E11.21 Type 2 diabetes mellitus with diabetic nephropathy; L97.329 Non-pressure chronic ulcer of left ankle with unspecified severity; L97.811 Non-pressure chronic ulcer of other part of right lower leg limited to breakdown of skin; L03.119 Cellulitis of unspecified part of limb; I87.2 Venous insufficiency (chronic) (peripheral); R60.9 Edema, unspecified; I10 Essential (primary) hypertension; E78.5 Hyperlipidemia, unspecified; I48.91 Unspecified atrial fibrillation; E66.01 Morbid (severe) obesity due to excess calories

== ENCOUNTER → 2022-03-21 | Outpatient (CLI) | payer BC | LOC: WCC 10:59 | PROVIDERS: ATTEND Internal Medicine Infectious Disease | DX: E11.622 Type 2 diabetes mellitus with other skin ulcer (principal); E11.21 Type 2 diabetes mellitus with diabetic nephropathy; L97.329 Non-pressure chronic ulcer of left ankle with unspecified severity; L03.818 Cellulitis of other sites; I87.2 Venous insufficiency (chronic) (peripheral); R60.9 Edema, unspecified; I10 Essential (primary) hypertension; E78.5 Hyperlipidemia, unspecified; I48.91 Unspecified atrial fibrillation; E66.01 Morbid (severe) obesity due to excess calories ==

== ENCOUNTER → 2022-04-04 | Outpatient (CLI) | payer BC | LOC: WCC 11:33 | PROVIDERS: ATTEND Internal Medicine Infectious Disease | DX: E11.21 Type 2 diabetes mellitus with diabetic nephropathy (principal); E11.622 Type 2 diabetes mellitus with other skin ulcer; L97.329 Non-pressure chronic ulcer of left ankle with unspecified severity; L03.818 Cellulitis of other sites; I87.2 Venous insufficiency (chronic) (peripheral); R60.9 Edema, unspecified; I10 Essential (primary) hypertension; E78.5 Hyperlipidemia, unspecified; I48.91 Unspecified atrial fibrillation; E66.01 Morbid (severe) obesity due to excess calories | CPT/HCPCS: 36415; 82948 ==

== ENCOUNTER 2023-11-04 16:51 | Inpatient (IN) | payer BC, MEDICARE ==
[~2023-11-04] VITALS: Ht 177.8 cm; Wt 111.4 kg
[2023-11-04] MEDS ORDERED: ACETAMINOPHEN 325 MG TAB PO ONE (17:15)
[2023-11-04] MEDS ORDERED: CEFEPIME 2 GM in SODIUM CHLORIDE 0.9% 100 ML IV ONE (17:15)
[2023-11-04] MEDS ORDERED: SODIUM CHLORIDE 0.9% 500ML 500 ML IV ONE (17:15)
[2023-11-04] MEDS ORDERED: ACETAMINOPHEN 325 MG TAB ONE (17:18)
[2023-11-04 17:20] LABS: BASOPHILS # (AUTO) 0.1 (0.0-0.1); BASOPHILS % 0.3 % (0.0-1.0); HEMATOCRIT 42.5 % (38.2-49.6); HEMOGLOBIN 14.4 g/dL (14.0-18.0); LYMPHOCYTES # (AUTO) 0.7 (1.0-3.2); LYMPHOCYTES % 2.4 % (18.0-39.1); MEAN CORPUSCULAR HEMOGLOBIN 30.1 pg (28-32); MEAN CORPUSCULAR HGB CONC 33.9 g/dL (31-35); MEAN CORPUSCULAR VOLUME 88.9 fL (81-99); MONOCYTES # (AUTO) 2.3 (0.2-0.8); NEUTROPHILS # (AUTO) 25.2 (2.1-6.9); NEUTROPHILS % 88.2 % (38.7-80.0); PLATELET COUNT 198 x10e3/uL (140-360); RED BLOOD COUNT 4.78 x10e6/uL (4.3-5.7); RED CELL DISTRIBUTION WIDTH 14.2 % (11.7-14.4); WHITE BLOOD COUNT 28.56 x10e3/uL (4.8-10.8)
[2023-11-04] MEDS ORDERED: Vancomycin IV 2 GM in SODIUM CHLORIDE 0.9% 500ML 500 ML IV ONE (17:30)
[2023-11-04 17:34] LABS: INR 1.2; PARTIAL THROMBOPLASTIN TIME 32.5 seconds (23.8-35.5); PROTHROMBIN TIME 15.5 seconds (11.9-14.5)
[2023-11-04 17:41] LABS: ALBUMIN 3.7 g/dL (3.5-5.0); ANION GAP 19.8 mmol/L (8-16); CALCIUM 8.8 mg/dL (8.4-10.2); CREATININE, SERUM 1.29 mg/dL (0.72-1.25); TOTAL PROTEIN 7.5 g/dL (6.5-8.1)
[2023-11-04 17:45] LABS: POTASSIUM 2.8 mmol/L (3.5-5.1)
[2023-11-04 18:36] LABS: CLARITY,URINE CLEAR (CLEAR); COLOR,URINE YELLOW (YELLOW); GLUCOSE, URINE 2+ (NEGATIVE); LEUKOCYTE ESTERASE ,URINE NEGATIVE (NEGATIVE); NITRITE,URINE NEGATIVE (NEGATIVE); PH,URINE 7 (5 - 7); PROTEIN,URINE DIPSTICK TRACE (NEGATIVE)
[2023-11-04 18:37] LABS: BILIRUBIN,URINE NEGATIVE (NEGATIVE); KETONES,URINE 1+ (NEGATIVE); URINE UROBILINOGEN 0.2 mg/dL (0.2 - 1)
[2023-11-04] MEDS ORDERED: POTASSIUM CHLORIDE 20 MEQ TAB CR PO STA (18:55)
[2023-11-04 18:59] LABS: BACTERIA,URINE RARE /HPF; EPITHELIAL CELLS,URINE FEW /LPF; WBC,URINE (MAN) 0-5 /HPF (0-5)
[2023-11-04] MEDS ORDERED: DIGOXIN INJ 0.25 MG/ML 2 ML AMP IV ONE (19:15)
[2023-11-04] MEDS ORDERED: IBUPROFEN 600 MG TAB PO STA (19:43)
[2023-11-04] MEDS ORDERED: IBUPROFEN 600 MG TAB ONE (19:46)
[2023-11-04] MEDS ORDERED: KCL 20MEQ/.9 SOD CHL 1,000 ML IV ONE (20:00)
[2023-11-04] MEDS ORDERED: ONDANSETRON HCL INJ 2MG/ML 2ML 2 MG/ML VIAL IV PRN (20:00)
[2023-11-04 21:30] LABS: BAND NEUTROPHILS % (MANUAL) 8 %; LYMPHOCYTES % (MANUAL) 5 % (19-48); MONOCYTES % (MANUAL) 7 % (3.4-9.0); NEUTROPHILS % (MANUAL) 79 % (40-74); PLATELET ESTIMATE ADEQUATE; PLATELET MORPHOLOGY COMMENT NORMAL; RBC MORPHOLOGY COMMENT NORMAL
[2023-11-04] MEDS ORDERED: CEFEPIME 2 GM in SODIUM CHLORIDE 0.9% 100 ML IV SCH (22:00)
[2023-11-05] VITALS (30 sets, daily range): BP systolic 99–182; BP diastolic 49–107; PULSE 86–118; RESP 15–35; TEMP 98.1–102; O2SAT 91–100
[2023-11-05] MEDS: CEFEPIME 2 GM in SODIUM CHLORIDE 0.9% 100 ML IV SCH ×4 (01:10→21:46)
[2023-11-05] MEDS ORDERED: METOPROLOL SUCC50 MG PO (01:48)
[2023-11-05] MEDS ORDERED: FUROSEMIDE40 MG PO (01:48)
[2023-11-05] MEDS ORDERED: POTASSIUM CHLO10 ME1 PO (01:48)
[2023-11-05] MEDS ORDERED: MULTIVITAMINS1 EAC6 PO (01:48)
[2023-11-05] MEDS ORDERED: METFORMIN HCL500 MG PO (01:48)
[2023-11-05] MEDS ORDERED: ASPIRIN81 MG PO (01:48)
[2023-11-05 06:00] LABS: TROPONIN I 0.033 ng/mL (0-0.300)
[2023-11-05 07:48] LABS: BASOPHILS % 0.2 % (0.0-1.0); HEMATOCRIT 39.1 % (38.2-49.6); HEMOGLOBIN 12.9 g/dL (14.0-18.0); LYMPHOCYTES # (AUTO) 0.8 (1.0-3.2); LYMPHOCYTES % 3.5 % (18.0-39.1); MEAN CORPUSCULAR HEMOGLOBIN 30.2 pg (28-32); MEAN CORPUSCULAR VOLUME 91.6 fL (81-99); MONOCYTES # (AUTO) 1.9 (0.2-0.8); MONOCYTES % 8.2 % (4.4-11.3); NEUTROPHILS # (AUTO) 20.2 (2.1-6.9); NEUTROPHILS % 87.5 % (38.7-80.0); PLATELET COUNT 141 x10e3/uL (140-360); RED BLOOD COUNT 4.27 x10e6/uL (4.3-5.7); RED CELL DISTRIBUTION WIDTH 14.7 % (11.7-14.4); WHITE BLOOD COUNT 23.06 x10e3/uL (4.8-10.8)
[2023-11-05 07:56] LABS: ALBUMIN 2.8 g/dL (3.5-5.0); ALBUMIN/GLOBULIN RATIO 0.8 (0.8-2.0); ANION GAP 14.4 mmol/L (8-16); CALCIUM 8.2 mg/dL (8.4-10.2); CHOL/HDL RATIO 2.9 (3.9-4.7); CREATININE, SERUM 0.96 mg/dL (0.72-1.25); TOTAL PROTEIN 6.1 g/dL (6.5-8.1)
[2023-11-05 07:58] LABS: POTASSIUM 3.4 mmol/L (3.5-5.1)
[2023-11-05] MEDS: Vancomycin IV 1 GM in SODIUM CHLORIDE 0.9% 250ML 250 ML IV SCH ×2 (09:21→21:44)
[2023-11-05] MEDS: ACETAMINOPHEN 325 MG TAB PO PRN ×3 (09:34→22:02)
[2023-11-05 11:37] LABS: BAND NEUTROPHILS % (MANUAL) 7 %; LYMPHOCYTES % (MANUAL) 5 % (19-48); MONOCYTES % (MANUAL) 4 % (3.4-9.0); NEUTROPHILS % (MANUAL) 84 % (40-74)
[2023-11-05 11:38] LABS: PLATELET ESTIMATE ADEQUATE; PLATELET MORPHOLOGY COMMENT NORMAL
[2023-11-05] MEDS: OXYMETAZOLINE HCL 0.05% NAS 1 SPRAY BTL PRN (12:43)
[2023-11-05] MEDS ORDERED: DEXTROSE 50% SYRINGE 50 ML IV PRN (18:00)
[2023-11-05] MEDS: INSULIN LISPRO 100 UNIT/1 ML 3ML VIAL SQ SCH ×2 (18:11→21:46)
[2023-11-05] MEDS: Morphine 4mg INJECTION 4 MG/ML INJ IV PRN (22:02)
[2023-11-05 22:45] LABS: TROPONIN I 0.039 ng/mL (0-0.300)
[2023-11-06] VITALS (14 sets, daily range): BP systolic 113–182; BP diastolic 66–107; PULSE 88–113; RESP 16–24; TEMP 97.4–98.9; O2SAT 95–100
[2023-11-06] MEDS: ACETAMINOPHEN 325 MG TAB PO PRN ×3 (02:11→22:51)
[2023-11-06] MEDS: CEFEPIME 2 GM in SODIUM CHLORIDE 0.9% 100 ML IV SCH (05:32)
[2023-11-06 05:44] LABS: BASOPHILS % 0.2 % (0.0-1.0); EOSINOPHILS % 0.1 % (0.0-6.0); HEMATOCRIT 38.5 % (38.2-49.6); HEMOGLOBIN 12.8 g/dL (14.0-18.0); LYMPHOCYTES # (AUTO) 0.7 (1.0-3.2); LYMPHOCYTES % 3.5 % (18.0-39.1); MEAN CORPUSCULAR HEMOGLOBIN 30.3 pg (28-32); MEAN CORPUSCULAR HGB CONC 33.2 g/dL (31-35); MONOCYTES % 5.2 % (4.4-11.3); NEUTROPHILS # (AUTO) 17.5 (2.1-6.9); PLATELET COUNT 139 x10e3/uL (140-360); RED BLOOD COUNT 4.23 x10e6/uL (4.3-5.7); RED CELL DISTRIBUTION WIDTH 14.6 % (11.7-14.4)
[2023-11-06 06:11] LABS: ANION GAP 14.3 mmol/L (8-16); CALCIUM 8.7 mg/dL (8.4-10.2); CREATININE, SERUM 0.75 mg/dL (0.72-1.25); MAGNESIUM 1.5 MG/DL (1.3-2.1); PHOSPHORUS 1.8 MG/DL (2.3-4.7)
[2023-11-06 06:12] LABS: POTASSIUM 3.3 mmol/L (3.5-5.1)
[2023-11-06 06:36] LABS: FREE T4 (FREE THYROXINE) 1.22 ng/dL (0.8-1.8); THYROID STIMULATING HORMONE 0.561 uIU/mL (0.350-4.940)
[2023-11-06] MEDS: Vancomycin IV 1 GM in SODIUM CHLORIDE 0.9% 250ML 250 ML IV SCH (09:48)
[2023-11-06] MEDS: OXYMETAZOLINE HCL 0.05% NAS 1 SPRAY BTL PRN (09:48)
[2023-11-06] MEDS: ENOXAPARIN SODIUM INJ 100 MG/ML SYR SC SCH ×2 (09:49→21:30)
[2023-11-06] MEDS: METOPROLOL SUCCINATE 25 MG TAB XL PO SCH (09:50)
[2023-11-06] MEDS: AMIODARONE HCL 200 MG TAB PO SCH (09:51)
[2023-11-06] MEDS: INSULIN LISPRO 100 UNIT/1 ML 3ML VIAL SQ SCH ×4 (09:52→21:37)
[2023-11-06] MEDS: Morphine 4mg INJECTION 4 MG/ML INJ IV PRN ×2 (09:55→22:50)
[2023-11-06] MEDS ORDERED: MAGNESIUM SULFATE 2GM/50ML 50 ML IV ONE (10:30)
[2023-11-06] MEDS ORDERED: POTASSIUM PHOSPHATE 15 MM in SODIUM CHLORIDE 0.9% 250ML 250 ML IV ONE (11:00)
[2023-11-06] MEDS ORDERED: MAGNESIUM SULF 1GRAM/DEXTROSE 100 ML IV ONE (12:30)
[2023-11-06] MEDS ORDERED: SODIUM CHLORIDE 0.9% 100 ML ONE (13:02)
[2023-11-06] MEDS ORDERED: FUROSEMIDE INJ 10 MG/ML 2 ML VIAL IV ONE (13:45)
[2023-11-06] MEDS ORDERED: ONDANSETRON HCL 4 MG ORAL DISINTEGRATING TAB PO PRN (14:30)
[2023-11-06] MEDS: CEFTRIAXONE 2 GM in SODIUM CHLORIDE 0.9% 100 ML IV SCH (15:41)
[2023-11-06] MEDS ORDERED: POTASSIUM CHLORIDE 20 MEQ TAB CR PO ONE (20:45)
[2023-11-06] MEDS: ATORVASTATIN 40 MG TAB PO SCH (21:30)
[2023-11-07] VITALS (13 sets, daily range): BP systolic 115–141; BP diastolic 64–81; PULSE 81–101; RESP 17–20; TEMP 98.1–98.9; O2SAT 95–100
[2023-11-07 06:01] LABS: BASOPHILS # (AUTO) 0.1 (0.0-0.1); BASOPHILS % 0.5 % (0.0-1.0); EOSINOPHILS # (AUTO) 0.2 (0.0-0.4); EOSINOPHILS % 1.4 % (0.0-6.0); HEMATOCRIT 40.5 % (38.2-49.6); LYMPHOCYTES # (AUTO) 0.6 (1.0-3.2); LYMPHOCYTES % 3.6 % (18.0-39.1); MEAN CORPUSCULAR HEMOGLOBIN 30.3 pg (28-32); MEAN CORPUSCULAR HGB CONC 32.1 g/dL (31-35); MEAN CORPUSCULAR VOLUME 94.4 fL (81-99); MONOCYTES # (AUTO) 1.2 (0.2-0.8); MONOCYTES % 7.1 % (4.4-11.3); NEUTROPHILS # (AUTO) 14.5 (2.1-6.9); NEUTROPHILS % 86.5 % (38.7-80.0); PLATELET COUNT 135 x10e3/uL (140-360); RED BLOOD COUNT 4.29 x10e6/uL (4.3-5.7); RED CELL DISTRIBUTION WIDTH 14.8 % (11.7-14.4); WHITE BLOOD COUNT 16.82 x10e3/uL (4.8-10.8)
[2023-11-07 06:16] LABS: ANION GAP 16.3 mmol/L (8-16); CALCIUM 8.4 mg/dL (8.4-10.2); CREATININE, SERUM 0.7 mg/dL (0.72-1.25); MAGNESIUM 1.9 MG/DL (1.3-2.1); PHOSPHORUS 1.6 MG/DL (2.3-4.7); POTASSIUM 4.3 mmol/L (3.5-5.1)
[2023-11-07] MEDS: Morphine 4mg INJECTION 4 MG/ML INJ IV PRN ×2 (06:54→15:31)
[2023-11-07] MEDS: ACETAMINOPHEN 325 MG TAB PO PRN ×3 (07:18→20:50)
[2023-11-07] MEDS: SUPER BETA PROSTATE PO SCH (09:00)
[2023-11-07] MEDS ORDERED: MULTIVITAMINS/MINERALS TAB PO SCH (09:00)
[2023-11-07] MEDS ORDERED: SODIUM PHOSPHATE IN 0.9 % NACL 15 MMOL in SODIUM CHLORIDE 0.9% 250ML 250 ML IV ONE ×2 (09:00)
[2023-11-07] MEDS: OXYMETAZOLINE HCL 0.05% NAS 1 SPRAY BTL PRN (09:22)
[2023-11-07] MEDS: METFORMIN HCL 500 MG TAB PO SCH ×2 (09:23→16:24)
[2023-11-07] MEDS: AMIODARONE HCL 200 MG TAB PO SCH (09:23)
[2023-11-07] MEDS: ENOXAPARIN SODIUM INJ 100 MG/ML SYR SC SCH ×2 (09:23→20:48)
[2023-11-07] MEDS: PRAVASTATIN 20 MG TAB PO SCH (09:23)
[2023-11-07] MEDS: ASPIRIN 81 MG CHEW TAB PO SCH (09:23)
[2023-11-07] MEDS: METOPROLOL SUCCINATE 25 MG TAB XL PO SCH (09:24)
[2023-11-07] MEDS: FUROSEMIDE INJ 10 MG/ML 2 ML VIAL IV SCH (09:24)
[2023-11-07] MEDS: INSULIN LISPRO 100 UNIT/1 ML 3ML VIAL SQ SCH ×4 (09:25→20:53)
[2023-11-07] MEDS: MUPIROCIN 2% OINT 22 GM TUBE TOP SCH ×2 (09:31→16:24)
[2023-11-07] MEDS: CEFTRIAXONE 2 GM in SODIUM CHLORIDE 0.9% 100 ML IV SCH (15:31)
[2023-11-07] MEDS: ZINC SULFATE 50 MG CAP PO SCH (16:23)
[2023-11-07] MEDS: OYST-CAL-D 500MG TABLET PO SCH (16:23)
[2023-11-07] MEDS: ASCORBIC ACID 500 MG TAB PO SCH (16:23)
[2023-11-07] MEDS: MAGNESIUM OXIDE 400 MG TAB PO SCH (16:24)
[2023-11-07] MEDS: ATORVASTATIN 40 MG TAB PO SCH (20:48)
[2023-11-08] VITALS (12 sets, daily range): BP systolic 103–133; BP diastolic 70–82; PULSE 76–98; RESP 18–22; TEMP 97.5–99; O2SAT 95–100
[2023-11-08] MEDS: ACETAMINOPHEN 325 MG TAB PO PRN ×2 (01:42→17:40)
[2023-11-08] MEDS: Morphine 4mg INJECTION 4 MG/ML INJ IV PRN ×3 (01:45→17:40)
[2023-11-08 08:09] LABS: BASOPHILS # (AUTO) 0.1 (0.0-0.1); BASOPHILS % 0.4 % (0.0-1.0); EOSINOPHILS # (AUTO) 0.6 (0.0-0.4); HEMATOCRIT 40.8 % (38.2-49.6); HEMOGLOBIN 13.2 g/dL (14.0-18.0); MEAN CORPUSCULAR HEMOGLOBIN 30.3 pg (28-32); MEAN CORPUSCULAR HGB CONC 32.4 g/dL (31-35); MEAN CORPUSCULAR VOLUME 93.6 fL (81-99); MONOCYTES # (AUTO) 1.2 (0.2-0.8); MONOCYTES % 5.7 % (4.4-11.3); NEUTROPHILS # (AUTO) 17.4 (2.1-6.9); NEUTROPHILS % 85.2 % (38.7-80.0); PLATELET COUNT 192 x10e3/uL (140-360); RED BLOOD COUNT 4.36 x10e6/uL (4.3-5.7); RED CELL DISTRIBUTION WIDTH 14.6 % (11.7-14.4); WHITE BLOOD COUNT 20.49 x10e3/uL (4.8-10.8)
[2023-11-08] MEDS: INSULIN LISPRO 100 UNIT/1 ML 3ML VIAL SQ SCH ×4 (08:21→21:45)
[2023-11-08] MEDS: METFORMIN HCL 500 MG TAB PO SCH ×2 (08:40→17:39)
[2023-11-08] MEDS: ZINC SULFATE 50 MG CAP PO SCH ×2 (08:41→17:38)
[2023-11-08] MEDS: MAGNESIUM OXIDE 400 MG TAB PO SCH ×2 (08:41→17:39)
[2023-11-08] MEDS: METOPROLOL SUCCINATE 25 MG TAB XL PO SCH (08:41)
[2023-11-08] MEDS: ASCORBIC ACID 500 MG TAB PO SCH ×2 (08:41→17:39)
[2023-11-08] MEDS: MULTIVITAMINS/MINERALS TAB PO SCH (08:41)
[2023-11-08] MEDS: OYST-CAL-D 500MG TABLET PO SCH ×2 (08:41→17:39)
[2023-11-08] MEDS: PRAVASTATIN 20 MG TAB PO SCH (08:41)
[2023-11-08] MEDS: ASPIRIN 81 MG CHEW TAB PO SCH (08:42)
[2023-11-08] MEDS: AMIODARONE HCL 200 MG TAB PO SCH (08:42)
[2023-11-08] MEDS: FUROSEMIDE INJ 10 MG/ML 2 ML VIAL IV SCH (08:42)
[2023-11-08] MEDS: ENOXAPARIN SODIUM INJ 100 MG/ML SYR SC SCH ×2 (08:42→21:38)
[2023-11-08] MEDS: SUPER BETA PROSTATE PO SCH (08:42)
[2023-11-08] MEDS: MUPIROCIN 2% OINT 22 GM TUBE TOP SCH ×2 (08:43→17:52)
[2023-11-08 08:47] LABS: ANION GAP 12.1 mmol/L (8-16); CREATININE, SERUM 0.68 mg/dL (0.72-1.25); MAGNESIUM 1.8 MG/DL (1.3-2.1); PHOSPHORUS 2.2 MG/DL (2.3-4.7); POTASSIUM 4.1 mmol/L (3.5-5.1)
[2023-11-08] MEDS ORDERED: IOPAMIDOL 370 MG/ML 100 ML INFUS..BTL INJ ONE (11:49)
[2023-11-08] MEDS: CEFTRIAXONE 2 GM in SODIUM CHLORIDE 0.9% 100 ML IV SCH (14:42)
[2023-11-08] MEDS ORDERED: SODIUM CHLORIDE 0.9% 250ML 250 ML ONE (17:48)
[2023-11-08] MEDS: ATORVASTATIN 40 MG TAB PO SCH (21:38)
[2023-11-09] VITALS (9 sets, daily range): BP systolic 98–138; BP diastolic 35–90; PULSE 76–102; RESP 16–22; TEMP 96.9–98.4; O2SAT 90–100
[2023-11-09] MEDS: ACETAMINOPHEN 325 MG TAB PO PRN ×2 (00:13→23:01)
[2023-11-09] MEDS: Morphine 4mg INJECTION 4 MG/ML INJ IV PRN ×4 (05:47→22:56)
[2023-11-09 06:04] LABS: BASOPHILS # (AUTO) 0.1 (0.0-0.1); BASOPHILS % 0.6 % (0.0-1.0); EOSINOPHILS # (AUTO) 0.8 (0.0-0.4); EOSINOPHILS % 4.8 % (0.0-6.0); HEMATOCRIT 36.6 % (38.2-49.6); HEMOGLOBIN 11.8 g/dL (14.0-18.0); LYMPHOCYTES # (AUTO) 1.3 (1.0-3.2); LYMPHOCYTES % 8.1 % (18.0-39.1); MEAN CORPUSCULAR HEMOGLOBIN 29.4 pg (28-32); MEAN CORPUSCULAR HGB CONC 32.2 g/dL (31-35); MONOCYTES # (AUTO) 1.2 (0.2-0.8); MONOCYTES % 7.7 % (4.4-11.3); NEUTROPHILS % 76.2 % (38.7-80.0); PLATELET COUNT 196 x10e3/uL (140-360); RED BLOOD COUNT 4.02 x10e6/uL (4.3-5.7); RED CELL DISTRIBUTION WIDTH 14.4 % (11.7-14.4); WHITE BLOOD COUNT 15.67 x10e3/uL (4.8-10.8)
[2023-11-09 06:28] LABS: CALCIUM 8.6 mg/dL (8.4-10.2); CREATININE, SERUM 0.69 mg/dL (0.72-1.25); MAGNESIUM 1.8 MG/DL (1.3-2.1); PHOSPHORUS 2.6 MG/DL (2.3-4.7)
[2023-11-09] MEDS: INSULIN LISPRO 100 UNIT/1 ML 3ML VIAL SQ SCH ×4 (08:03→21:41)
[2023-11-09] MEDS: FUROSEMIDE INJ 10 MG/ML 2 ML VIAL IV SCH (08:50)
[2023-11-09] MEDS: ENOXAPARIN SODIUM INJ 100 MG/ML SYR SC SCH ×2 (08:50→21:37)
[2023-11-09] MEDS: PRAVASTATIN 20 MG TAB PO SCH (08:51)
[2023-11-09] MEDS: MULTIVITAMINS/MINERALS TAB PO SCH (08:51)
[2023-11-09] MEDS: METOPROLOL SUCCINATE 25 MG TAB XL PO SCH (08:51)
[2023-11-09] MEDS: MAGNESIUM OXIDE 400 MG TAB PO SCH ×2 (08:51→17:11)
[2023-11-09] MEDS: OYST-CAL-D 500MG TABLET PO SCH ×2 (08:51→17:11)
[2023-11-09] MEDS: ASPIRIN 81 MG CHEW TAB PO SCH (08:51)
[2023-11-09] MEDS: AMIODARONE HCL 200 MG TAB PO SCH (08:52)
[2023-11-09] MEDS: ASCORBIC ACID 500 MG TAB PO SCH ×2 (08:52→17:11)
[2023-11-09] MEDS: MUPIROCIN 2% OINT 22 GM TUBE TOP SCH ×2 (08:52→17:12)
[2023-11-09] MEDS: METFORMIN HCL 500 MG TAB PO SCH ×2 (08:52→17:11)
[2023-11-09] MEDS: ZINC SULFATE 50 MG CAP PO SCH ×2 (08:52→17:10)
[2023-11-09] MEDS: SUPER BETA PROSTATE PO SCH (08:53)
[2023-11-09] MEDS: CLINDAMYCIN HCL 150 MG CAP PO SCH ×2 (14:22→21:37)
[2023-11-09] MEDS: CEFTRIAXONE 2 GM in SODIUM CHLORIDE 0.9% 100 ML IV SCH (14:22)
[2023-11-09] MEDS: ATORVASTATIN 40 MG TAB PO SCH (21:37)
[2023-11-10] VITALS (9 sets, daily range): BP systolic 118–140; BP diastolic 66–82; PULSE 70–97; RESP 18–20; TEMP 97.2–98.7; O2SAT 96–100
[2023-11-10] MEDS: Morphine 4mg INJECTION 4 MG/ML INJ IV PRN ×5 (03:47→22:34)
[2023-11-10] MEDS: ACETAMINOPHEN 325 MG TAB PO PRN (03:48)
[2023-11-10] MEDS: CLINDAMYCIN HCL 150 MG CAP PO SCH ×3 (06:00→21:25)
[2023-11-10] MEDS: MUPIROCIN 2% OINT 22 GM TUBE TOP SCH ×2 (09:00→17:22)
[2023-11-10] MEDS: SUPER BETA PROSTATE PO SCH (09:00)
[2023-11-10] MEDS: MAGNESIUM OXIDE 400 MG TAB PO SCH ×2 (09:47→17:22)
[2023-11-10] MEDS: AMIODARONE HCL 200 MG TAB PO SCH (09:47)
[2023-11-10] MEDS: OYST-CAL-D 500MG TABLET PO SCH ×2 (09:47→17:22)
[2023-11-10] MEDS: ASCORBIC ACID 500 MG TAB PO SCH ×2 (09:47→17:22)
[2023-11-10] MEDS: METOPROLOL SUCCINATE 25 MG TAB XL PO SCH (09:47)
[2023-11-10] MEDS: ASPIRIN 81 MG CHEW TAB PO SCH (09:47)
[2023-11-10] MEDS: MULTIVITAMINS/MINERALS TAB PO SCH (09:47)
[2023-11-10] MEDS: METFORMIN HCL 500 MG TAB PO SCH ×2 (09:48→17:22)
[2023-11-10] MEDS: FUROSEMIDE INJ 10 MG/ML 2 ML VIAL IV SCH (09:49)
[2023-11-10] MEDS: ENOXAPARIN SODIUM INJ 100 MG/ML SYR SC SCH ×2 (09:49→21:25)
[2023-11-10] MEDS: ZINC SULFATE 50 MG CAP PO SCH ×2 (09:53→17:22)
[2023-11-10] MEDS: PRAVASTATIN 20 MG TAB PO SCH (09:54)
[2023-11-10] MEDS: INSULIN LISPRO 100 UNIT/1 ML 3ML VIAL SQ SCH ×4 (10:07→21:28)
[2023-11-10] MEDS: CEFTRIAXONE 2 GM in SODIUM CHLORIDE 0.9% 100 ML IV SCH (13:14)
[2023-11-10] MEDS ORDERED: Vancomycin IV 2 GM in SODIUM CHLORIDE 0.9% 500ML 500 ML IV ONE (14:15)
[2023-11-10 16:56] LABS: BASOPHILS # (AUTO) 0.2 (0.0-0.1); BASOPHILS % 0.9 % (0.0-1.0); EOSINOPHILS # (AUTO) 0.5 (0.0-0.4); EOSINOPHILS % 3.2 % (0.0-6.0); HEMATOCRIT 38.4 % (38.2-49.6); HEMOGLOBIN 12.5 g/dL (14.0-18.0); LYMPHOCYTES # (AUTO) 2.1 (1.0-3.2); LYMPHOCYTES % 12.6 % (18.0-39.1); MEAN CORPUSCULAR HGB CONC 32.6 g/dL (31-35); MEAN CORPUSCULAR VOLUME 92.3 fL (81-99); MONOCYTES # (AUTO) 1.4 (0.2-0.8); MONOCYTES % 8.3 % (4.4-11.3); NEUTROPHILS # (AUTO) 11.5 (2.1-6.9); NEUTROPHILS % 69.1 % (38.7-80.0); PLATELET COUNT 278 x10e3/uL (140-360); RED BLOOD COUNT 4.16 x10e6/uL (4.3-5.7); RED CELL DISTRIBUTION WIDTH 14.2 % (11.7-14.4)
[2023-11-10 17:11] LABS: ANION GAP 13.3 mmol/L (8-16); CALCIUM 8.7 mg/dL (8.4-10.2); CREATININE, SERUM 0.7 mg/dL (0.72-1.25); POTASSIUM 4.3 mmol/L (3.5-5.1)
[2023-11-10 17:59] LABS: EOSINOPHILS % (MANUAL) 3 % (0-7); LYMPHOCYTES % (MANUAL) 9 % (19-48); MONOCYTES % (MANUAL) 3 % (3.4-9.0); NEUTROPHILS % (MANUAL) 80 % (40-74); PLATELET ESTIMATE ADEQUATE; PLATELET MORPHOLOGY COMMENT NORMAL; RBC MORPHOLOGY COMMENT NORMAL; REACTIVE LYMPHOCYTES 5
[2023-11-10] MEDS: MELATONIN 3 MG TAB PO PRN (21:25)
[2023-11-10] MEDS: ATORVASTATIN 40 MG TAB PO SCH (21:25)
[2023-11-11] VITALS (7 sets, daily range): BP systolic 108–149; BP diastolic 52–91; PULSE 78–98; RESP 18–22; TEMP 97.8–98.4; O2SAT 96–100
[2023-11-11] MEDS: Morphine 4mg INJECTION 4 MG/ML INJ IV PRN ×6 (01:47→23:46)
[2023-11-11] MEDS: CLINDAMYCIN HCL 150 MG CAP PO SCH ×3 (05:37→20:36)
[2023-11-11] MEDS: VANCOMYCIN 1.5 GM/300 ML 300 ML IV SCH ×2 (05:38→18:02)
[2023-11-11] MEDS: SUPER BETA PROSTATE PO SCH (09:00)
[2023-11-11] MEDS: PRAVASTATIN 20 MG TAB PO SCH (09:46)
[2023-11-11] MEDS: AMIODARONE HCL 200 MG TAB PO SCH (09:46)
[2023-11-11] MEDS: FUROSEMIDE INJ 10 MG/ML 2 ML VIAL IV SCH (09:46)
[2023-11-11] MEDS: OYST-CAL-D 500MG TABLET PO SCH ×2 (09:46→16:30)
[2023-11-11] MEDS: ASPIRIN 81 MG CHEW TAB PO SCH (09:46)
[2023-11-11] MEDS: MULTIVITAMINS/MINERALS TAB PO SCH (09:46)
[2023-11-11] MEDS: METFORMIN HCL 500 MG TAB PO SCH ×2 (09:47→16:30)
[2023-11-11] MEDS: MAGNESIUM OXIDE 400 MG TAB PO SCH ×2 (09:47→16:30)
[2023-11-11] MEDS: ASCORBIC ACID 500 MG TAB PO SCH ×2 (09:47→16:30)
[2023-11-11] MEDS: METOPROLOL SUCCINATE 25 MG TAB XL PO SCH (09:48)
[2023-11-11] MEDS: ZINC SULFATE 50 MG CAP PO SCH ×2 (09:48→16:30)
[2023-11-11] MEDS: MUPIROCIN 2% OINT 22 GM TUBE TOP SCH ×2 (09:48→16:30)
[2023-11-11] MEDS: ENOXAPARIN SODIUM INJ 100 MG/ML SYR SC SCH ×2 (09:48→20:39)
[2023-11-11] MEDS: INSULIN LISPRO 100 UNIT/1 ML 3ML VIAL SQ SCH ×4 (09:49→20:49)
[2023-11-11 11:39] LABS: BASOPHILS # (AUTO) 0.2 (0.0-0.1); EOSINOPHILS # (AUTO) 0.5 (0.0-0.4); EOSINOPHILS % 3.5 % (0.0-6.0); HEMATOCRIT 43.3 % (38.2-49.6); HEMOGLOBIN 13.8 g/dL (14.0-18.0); LYMPHOCYTES # (AUTO) 1.6 (1.0-3.2); MEAN CORPUSCULAR HEMOGLOBIN 29.8 pg (28-32); MEAN CORPUSCULAR HGB CONC 31.9 g/dL (31-35); MEAN CORPUSCULAR VOLUME 93.5 fL (81-99); MONOCYTES # (AUTO) 0.9 (0.2-0.8); MONOCYTES % 6.1 % (4.4-11.3); NEUTROPHILS # (AUTO) 10.7 (2.1-6.9); NEUTROPHILS % 72.3 % (38.7-80.0); PLATELET COUNT 292 x10e3/uL (140-360); RED BLOOD COUNT 4.63 x10e6/uL (4.3-5.7); RED CELL DISTRIBUTION WIDTH 14.1 % (11.7-14.4); WHITE BLOOD COUNT 14.86 x10e3/uL (4.8-10.8)
[2023-11-11 12:01] LABS: CALCIUM 8.9 mg/dL (8.4-10.2); CREATININE, SERUM 0.73 mg/dL (0.72-1.25)
[2023-11-11 15:07] LABS: BAND NEUTROPHILS % (MANUAL) 2 %; EOSINOPHILS % (MANUAL) 4 % (0-7); LYMPHOCYTES % (MANUAL) 5 % (19-48); METAMYELOCYTES % (MANUAL) 1 % (0-0); MONOCYTES % (MANUAL) 11 % (3.4-9.0); NEUTROPHILS % (MANUAL) 75 % (40-74); NUCLEATED RED BLOOD CELLS 1; REACTIVE LYMPHOCYTES 2
[2023-11-11 15:09] LABS: PLATELET ESTIMATE ADEQUATE; PLATELET MORPHOLOGY COMMENT NORMAL; RBC MORPHOLOGY COMMENT NORMAL
[2023-11-11] MEDS: ATORVASTATIN 40 MG TAB PO SCH (20:36)
[2023-11-11] MEDS: MELATONIN 3 MG TAB PO PRN (20:36)
[2023-11-12] VITALS (9 sets, daily range): BP systolic 103–133; BP diastolic 52–78; PULSE 71–97; RESP 16–21; TEMP 97.8–98.9; O2SAT 96–100
[2023-11-12] MEDS: CLINDAMYCIN HCL 150 MG CAP PO SCH ×3 (04:12→20:21)
[2023-11-12] MEDS: Morphine 4mg INJECTION 4 MG/ML INJ IV PRN ×4 (04:12→18:19)
[2023-11-12 05:48] LABS: BASOPHILS # (AUTO) 0.1 (0.0-0.1); BASOPHILS % 0.5 % (0.0-1.0); EOSINOPHILS # (AUTO) 0.6 (0.0-0.4); EOSINOPHILS % 3.7 % (0.0-6.0); HEMATOCRIT 37.7 % (38.2-49.6); HEMOGLOBIN 12.4 g/dL (14.0-18.0); LYMPHOCYTES # (AUTO) 1.8 (1.0-3.2); LYMPHOCYTES % 11.5 % (18.0-39.1); MEAN CORPUSCULAR HEMOGLOBIN 29.6 pg (28-32); MEAN CORPUSCULAR HGB CONC 32.9 g/dL (31-35); MONOCYTES # (AUTO) 1.2 (0.2-0.8); MONOCYTES % 7.9 % (4.4-11.3); NEUTROPHILS # (AUTO) 10.7 (2.1-6.9); NEUTROPHILS % 69.8 % (38.7-80.0); PLATELET COUNT 308 x10e3/uL (140-360); RED BLOOD COUNT 4.19 x10e6/uL (4.3-5.7); WHITE BLOOD COUNT 15.26 x10e3/uL (4.8-10.8)
[2023-11-12 06:08] LABS: CALCIUM 8.6 mg/dL (8.4-10.2); CREATININE, SERUM 0.68 mg/dL (0.72-1.25)
[2023-11-12] MEDS: VANCOMYCIN 1.5 GM/300 ML 300 ML IV SCH ×2 (06:42→17:23)
[2023-11-12] MEDS: ACETAMINOPHEN 325 MG TAB PO PRN ×3 (07:45→23:57)
[2023-11-12] MEDS: METFORMIN HCL 500 MG TAB PO SCH ×2 (07:46→17:26)
[2023-11-12] MEDS: ASCORBIC ACID 500 MG TAB PO SCH ×2 (07:46→17:26)
[2023-11-12] MEDS: OYST-CAL-D 500MG TABLET PO SCH ×2 (07:46→17:25)
[2023-11-12] MEDS: MUPIROCIN 2% OINT 22 GM TUBE TOP SCH ×2 (07:46→17:29)
[2023-11-12] MEDS: MAGNESIUM OXIDE 400 MG TAB PO SCH ×2 (07:47→17:26)
[2023-11-12] MEDS: AMIODARONE HCL 200 MG TAB PO SCH ×2 (07:47→11:39)
[2023-11-12] MEDS: ZINC SULFATE 50 MG CAP PO SCH ×2 (07:47→17:25)
[2023-11-12] MEDS: MULTIVITAMINS/MINERALS TAB PO SCH (07:47)
[2023-11-12] MEDS: PRAVASTATIN 20 MG TAB PO SCH (07:47)
[2023-11-12] MEDS: ASPIRIN 81 MG CHEW TAB PO SCH (07:47)
[2023-11-12] MEDS: METOPROLOL SUCCINATE 25 MG TAB XL PO SCH (07:48)
[2023-11-12] MEDS: ENOXAPARIN SODIUM INJ 100 MG/ML SYR SC SCH ×2 (07:49→20:22)
[2023-11-12] MEDS: FUROSEMIDE INJ 10 MG/ML 2 ML VIAL IV SCH (07:49)
[2023-11-12] MEDS: INSULIN LISPRO 100 UNIT/1 ML 3ML VIAL SQ SCH ×4 (07:50→20:25)
[2023-11-12] MEDS: SUPER BETA PROSTATE PO SCH (07:51)
[2023-11-12] MEDS ORDERED: Morphine 2mg Syringe 2 MG/ML SYR ONE (11:37)
[2023-11-12 11:56] LABS: BAND NEUTROPHILS % (MANUAL) 1 %; EOSINOPHILS % (MANUAL) 5 % (0-7); LYMPHOCYTES % (MANUAL) 10 % (19-48); MONOCYTES % (MANUAL) 7 % (3.4-9.0); MYELOCYTES % (MANUAL) 3 % (0-0); NEUTROPHILS % (MANUAL) 73 % (40-74); PLATELET ESTIMATE ADEQUATE; PLATELET MORPHOLOGY COMMENT NORMAL; REACTIVE LYMPHOCYTES 1
[2023-11-12] MEDS: ATORVASTATIN 40 MG TAB PO SCH (20:21)
[2023-11-12] MEDS: HYDROCODONE/APAP 10MG-325MG TAB PO PRN (20:21)
[2023-11-12] MEDS: MELATONIN 3 MG TAB PO PRN (20:21)
[2023-11-13] VITALS (8 sets, daily range): BP systolic 139–159; BP diastolic 85–115; PULSE 78–99; RESP 17–22; TEMP 97.6–98.2; O2SAT 96–100
[2023-11-13] MEDS: HYDROCODONE/APAP 10MG-325MG TAB PO PRN ×2 (01:53→09:53)
[2023-11-13] MEDS: VANCOMYCIN 1.5 GM/300 ML 300 ML IV SCH ×2 (05:23→17:59)
[2023-11-13] MEDS: ACETAMINOPHEN 325 MG TAB PO PRN ×2 (05:23→07:43)
[2023-11-13] MEDS: CLINDAMYCIN HCL 150 MG CAP PO SCH ×3 (05:25→21:16)
[2023-11-13] MEDS: SUPER BETA PROSTATE PO SCH (09:00)
[2023-11-13] MEDS: FUROSEMIDE INJ 10 MG/ML 2 ML VIAL IV SCH (09:54)
[2023-11-13] MEDS: ASPIRIN 81 MG CHEW TAB PO SCH (09:54)
[2023-11-13] MEDS: METFORMIN HCL 500 MG TAB PO SCH ×2 (09:54→17:59)
[2023-11-13] MEDS: PRAVASTATIN 20 MG TAB PO SCH (09:55)
[2023-11-13] MEDS: AMIODARONE HCL 200 MG TAB PO SCH (09:55)
[2023-11-13] MEDS: MAGNESIUM OXIDE 400 MG TAB PO SCH ×2 (09:55→17:59)
[2023-11-13] MEDS: ASCORBIC ACID 500 MG TAB PO SCH ×2 (09:55→17:59)
[2023-11-13] MEDS: MULTIVITAMINS/MINERALS TAB PO SCH (09:56)
[2023-11-13] MEDS: ZINC SULFATE 50 MG CAP PO SCH ×2 (09:56→17:59)
[2023-11-13] MEDS: OYST-CAL-D 500MG TABLET PO SCH ×2 (09:56→17:59)
[2023-11-13] MEDS: METOPROLOL SUCCINATE 25 MG TAB XL PO SCH (09:56)
[2023-11-13] MEDS: INSULIN LISPRO 100 UNIT/1 ML 3ML VIAL SQ SCH ×4 (10:04→20:54)
[2023-11-13] MEDS: MUPIROCIN 2% OINT 22 GM TUBE TOP SCH ×2 (11:52→18:00)
[2023-11-13] MEDS: ATORVASTATIN 40 MG TAB PO SCH (21:16)
[2023-11-14] VITALS (9 sets, daily range): BP systolic 123–132; BP diastolic 69–90; PULSE 64–85; RESP 16–20; TEMP 97.8–98.1; O2SAT 96–100
[2023-11-14] MEDS: HYDROCODONE/APAP 10MG-325MG TAB PO PRN ×3 (02:53→15:26)
[2023-11-14] MEDS: CLINDAMYCIN HCL 150 MG CAP PO SCH ×3 (05:35→20:44)
[2023-11-14 06:13] LABS: ANION GAP 13.4 mmol/L (8-16); CALCIUM 9.1 mg/dL (8.4-10.2); CREATININE, SERUM 0.75 mg/dL (0.72-1.25); POTASSIUM 4.4 mmol/L (3.5-5.1)
[2023-11-14 06:24] LABS: BASOPHILS # (AUTO) 0.1 (0.0-0.1); BASOPHILS % 0.7 % (0.0-1.0); EOSINOPHILS # (AUTO) 0.5 (0.0-0.4); EOSINOPHILS % 3.9 % (0.0-6.0); HEMATOCRIT 38.3 % (38.2-49.6); HEMOGLOBIN 12.3 g/dL (14.0-18.0); LYMPHOCYTES # (AUTO) 1.7 (1.0-3.2); LYMPHOCYTES % 13.3 % (18.0-39.1); MEAN CORPUSCULAR HEMOGLOBIN 29.6 pg (28-32); MEAN CORPUSCULAR HGB CONC 32.1 g/dL (31-35); MEAN CORPUSCULAR VOLUME 92.3 fL (81-99); MONOCYTES # (AUTO) 0.9 (0.2-0.8); MONOCYTES % 6.7 % (4.4-11.3); NEUTROPHILS # (AUTO) 9.3 (2.1-6.9); NEUTROPHILS % 71.2 % (38.7-80.0); PLATELET COUNT 269 x10e3/uL (140-360); RED BLOOD COUNT 4.15 x10e6/uL (4.3-5.7); RED CELL DISTRIBUTION WIDTH 13.8 % (11.7-14.4)
[2023-11-14] MEDS: VANCOMYCIN 1.5 GM/300 ML 300 ML IV SCH ×2 (06:24→17:13)
[2023-11-14] MEDS: SUPER BETA PROSTATE PO SCH (09:00)
[2023-11-14] MEDS: METFORMIN HCL 500 MG TAB PO SCH ×2 (09:03→17:17)
[2023-11-14] MEDS: MULTIVITAMINS/MINERALS TAB PO SCH (09:03)
[2023-11-14] MEDS: MAGNESIUM OXIDE 400 MG TAB PO SCH ×2 (09:03→17:17)
[2023-11-14] MEDS: AMIODARONE HCL 200 MG TAB PO SCH (09:03)
[2023-11-14] MEDS: PRAVASTATIN 20 MG TAB PO SCH (09:03)
[2023-11-14] MEDS: ASCORBIC ACID 500 MG TAB PO SCH ×2 (09:03→17:17)
[2023-11-14] MEDS: OYST-CAL-D 500MG TABLET PO SCH ×2 (09:03→17:17)
[2023-11-14] MEDS: ASPIRIN 81 MG CHEW TAB PO SCH (09:03)
[2023-11-14] MEDS: ZINC SULFATE 50 MG CAP PO SCH ×2 (09:03→17:17)
[2023-11-14] MEDS: METOPROLOL SUCCINATE 25 MG TAB XL PO SCH (09:04)
[2023-11-14] MEDS: FUROSEMIDE INJ 10 MG/ML 2 ML VIAL IV SCH (09:05)
[2023-11-14] MEDS: INSULIN LISPRO 100 UNIT/1 ML 3ML VIAL SQ SCH ×4 (09:13→20:43)
[2023-11-14] MEDS ORDERED: Vancomycin IV 1 GM in SODIUM CHLORIDE 0.9% 250ML 250 ML IV ONE (14:15)
[2023-11-14] MEDS: APIXABAN 5 MG TABLET PO SCH (17:17)
[2023-11-14] MEDS: ATORVASTATIN 40 MG TAB PO SCH (20:44)
[2023-11-15] VITALS (9 sets, daily range): BP systolic 133–148; BP diastolic 79–92; PULSE 68–80; RESP 16–20; TEMP 97.4–98.2; O2SAT 96–100
[2023-11-15] MEDS: HYDROCODONE/APAP 10MG-325MG TAB PO PRN ×4 (00:17→14:35)
[2023-11-15] MEDS: VANCOMYCIN 1.5 GM/300 ML 300 ML IV SCH ×2 (05:51→17:35)
[2023-11-15] MEDS: CLINDAMYCIN HCL 150 MG CAP PO SCH ×3 (05:51→20:16)
[2023-11-15] MEDS: SUPER BETA PROSTATE PO SCH (09:00)
[2023-11-15] MEDS: OYST-CAL-D 500MG TABLET PO SCH ×2 (09:19→17:26)
[2023-11-15] MEDS: ZINC SULFATE 50 MG CAP PO SCH ×2 (09:20→17:26)
[2023-11-15] MEDS: MAGNESIUM OXIDE 400 MG TAB PO SCH ×2 (09:20→17:27)
[2023-11-15] MEDS: ASCORBIC ACID 500 MG TAB PO SCH ×2 (09:20→17:26)
[2023-11-15] MEDS: APIXABAN 5 MG TABLET PO SCH ×2 (09:20→17:27)
[2023-11-15] MEDS: MULTIVITAMINS/MINERALS TAB PO SCH (09:20)
[2023-11-15] MEDS: ASPIRIN 81 MG CHEW TAB PO SCH (09:20)
[2023-11-15] MEDS: METFORMIN HCL 500 MG TAB PO SCH ×2 (09:21→17:27)
[2023-11-15] MEDS: PRAVASTATIN 20 MG TAB PO SCH (09:22)
[2023-11-15] MEDS: METOPROLOL SUCCINATE 25 MG TAB XL PO SCH (09:23)
[2023-11-15] MEDS: FUROSEMIDE INJ 10 MG/ML 2 ML VIAL IV SCH (09:23)
[2023-11-15] MEDS: AMIODARONE HCL 200 MG TAB PO SCH (09:24)
[2023-11-15] MEDS: INSULIN LISPRO 100 UNIT/1 ML 3ML VIAL SQ SCH ×4 (09:27→20:03)
[2023-11-15] MEDS: CEFTRIAXONE 2 GM in SODIUM CHLORIDE 0.9% 100 ML IV SCH (12:51)
[2023-11-15] MEDS: ATORVASTATIN 40 MG TAB PO SCH (20:16)
[2023-11-16] VITALS (8 sets, daily range): BP systolic 123–162; BP diastolic 74–92; PULSE 71–90; RESP 17–21; TEMP 97.5–98.2; O2SAT 95–100
[2023-11-16] MEDS: HYDROCODONE/APAP 10MG-325MG TAB PO PRN ×3 (00:02→14:30)
[2023-11-16 06:18] LABS: BASOPHILS # (AUTO) 0.1 (0.0-0.1); BASOPHILS % 0.7 % (0.0-1.0); EOSINOPHILS # (AUTO) 0.4 (0.0-0.4); EOSINOPHILS % 3.4 % (0.0-6.0); HEMATOCRIT 37.9 % (38.2-49.6); HEMOGLOBIN 12.4 g/dL (14.0-18.0); MEAN CORPUSCULAR HEMOGLOBIN 29.1 pg (28-32); MEAN CORPUSCULAR HGB CONC 32.7 g/dL (31-35); MONOCYTES # (AUTO) 0.9 (0.2-0.8); MONOCYTES % 7.1 % (4.4-11.3); NEUTROPHILS # (AUTO) 8.8 (2.1-6.9); NEUTROPHILS % 70.6 % (38.7-80.0); PLATELET COUNT 335 x10e3/uL (140-360); RED BLOOD COUNT 4.26 x10e6/uL (4.3-5.7); RED CELL DISTRIBUTION WIDTH 13.9 % (11.7-14.4); WHITE BLOOD COUNT 12.48 x10e3/uL (4.8-10.8)
[2023-11-16 06:30] LABS: ANION GAP 11.3 mmol/L (8-16); CALCIUM 9.1 mg/dL (8.4-10.2); CREATININE, SERUM 0.77 mg/dL (0.72-1.25); MAGNESIUM 1.8 MG/DL (1.3-2.1); PHOSPHORUS 3.3 MG/DL (2.3-4.7); POTASSIUM 4.3 mmol/L (3.5-5.1)
[2023-11-16] MEDS: VANCOMYCIN 1.5 GM/300 ML 300 ML IV SCH (06:49)
[2023-11-16] MEDS: CLINDAMYCIN HCL 150 MG CAP PO SCH ×2 (06:49→14:30)
[2023-11-16] MEDS: APIXABAN 5 MG TABLET PO SCH ×2 (08:48→16:55)
[2023-11-16] MEDS: ASPIRIN 81 MG CHEW TAB PO SCH (08:48)
[2023-11-16] MEDS: METFORMIN HCL 500 MG TAB PO SCH ×2 (08:49→16:54)
[2023-11-16] MEDS: ZINC SULFATE 50 MG CAP PO SCH ×2 (08:49→16:55)
[2023-11-16] MEDS: MULTIVITAMINS/MINERALS TAB PO SCH (08:49)
[2023-11-16] MEDS: OYST-CAL-D 500MG TABLET PO SCH ×2 (08:49→16:55)
[2023-11-16] MEDS: PRAVASTATIN 20 MG TAB PO SCH (08:49)
[2023-11-16] MEDS: METOPROLOL SUCCINATE 25 MG TAB XL PO SCH (08:50)
[2023-11-16] MEDS: MAGNESIUM OXIDE 400 MG TAB PO SCH ×2 (08:50→16:55)
[2023-11-16] MEDS: FUROSEMIDE INJ 10 MG/ML 2 ML VIAL IV SCH (08:50)
[2023-11-16] MEDS: ASCORBIC ACID 500 MG TAB PO SCH ×2 (08:50→16:54)
[2023-11-16] MEDS: AMIODARONE HCL 200 MG TAB PO SCH (08:50)
[2023-11-16] MEDS: CEFTRIAXONE 2 GM in SODIUM CHLORIDE 0.9% 100 ML IV SCH (08:51)
[2023-11-16] MEDS: INSULIN LISPRO 100 UNIT/1 ML 3ML VIAL SQ SCH ×3 (08:54→17:01)
[2023-11-16] MEDS: SUPER BETA PROSTATE PO SCH (09:00)
[2023-11-16] MEDS ORDERED: CEFTRIAXON2 GM/50 ML IVP (13:05)
[2023-11-16] MEDS ORDERED: FUROSEMIDE40 MG PO (13:05)
[2023-11-16] MEDS ORDERED: TOPROL XL25 MG PO (13:05)
[2023-11-16] MEDS ORDERED: AMIODARONE HCL200 MG PO (13:05)
[2023-11-17] MEDS ORDERED: FUROSEMIDE 20 MG TAB PO SCH (09:00)
== END 2023-11-16 19:08 | disposition home or self-care (01) | DRG 871 ==
LOC: ER 17:11 → ERHOLD 19:48 → ICU 11-05 01:03 → MED/SURG2 11-05 17:14
PROVIDERS: ADMIT Internal Medicine; ATTEND Internal Medicine
PROC: 3E04329 Introduction of Other Anti-infective into Central Vein, Percutaneous Approach (ICD-10-PCS; 2023-11-07)
PROC: 02HV33Z Insertion of Infusion Device into Superior Vena Cava, Percutaneous Approach (ICD-10-PCS; principal; 2023-11-13)
PROC: B548ZZA Ultrasonography of Superior Vena Cava, Guidance (ICD-10-PCS; 2023-11-13)
DX: A40.0 Sepsis due to streptococcus, group A (principal); I50.23 Acute on chronic systolic (congestive) heart failure; L03.116 Cellulitis of left lower limb; E87.1 Hypo-osmolality and hyponatremia; R65.20 Severe sepsis without septic shock; I48.0 Paroxysmal atrial fibrillation; I11.0 Hypertensive heart disease with heart failure; I25.10 Atherosclerotic heart disease of native coronary artery without angina pectoris; E78.49 Other hyperlipidemia; R09.02 Hypoxemia; E87.6 Hypokalemia; E11.65 Type 2 diabetes mellitus with hyperglycemia; R26.2 Difficulty in walking, not elsewhere classified; E66.9 Obesity, unspecified; R60.0 Localized edema; Z68.35 Body mass index [BMI] 35.0-35.9, adult; D72.829 Elevated white blood cell count, unspecified; E83.42 Hypomagnesemia; E83.39 Other disorders of phosphorus metabolism; Z79.01 Long term (current) use of anticoagulants; Z20.822 Contact with and (suspected) exposure to COVID-19
CPT/HCPCS: 36415; 36569; 71045; 73701; 80048; 80053; 80061; 80202; 81001; 82550; 82948; 83036; 83605; 83735; 84100; 84439; 84443; 84484; 85025; 85610; 85730; 87040; 87071; 87086; 87205; 87400; 93005; 93306; 94799; 96372; 99252; 99284; J0692; J0696; J1160; J1650; J1940; J2270; J3475; J7040; J7050; Q9967; U0002

== ENCOUNTER 2025-07-05 18:49 | Inpatient (IN) | payer OTHER, MEDICARE ==
[~2025-07-05] VITALS: Ht 177.8 cm; Wt 108.4 kg
[~2025-07-05 18:49] MED LIST changes: +AMIODARONE HCL200 MG PO; +ASCORBIC ACID500 MG PO; +ASPIRIN81 MG PO; +CEFTRIAXON2 GM/50 ML IVP; +MAG-OXIDE400 MG PO; +METOPROLOL SUCC50 MG PO; +MULTIVITAMINS1 EAC6 PO; +ONDANSETRON ODT4 MG PO; +OS-CAL 500-VIT1 EACH PO; +POTASSIUM CHLO10 ME1 PO; +ZINC-22050 MG PO
[2025-07-05 19:54] LABS: BASOPHILS % 0.7 % (0.0-1.0); EOSINOPHILS % 0.5 % (0.0-6.0); LYMPHOCYTES % 12.9 % (18.0-39.1); MONOCYTES % 4.9 % (4.4-11.3); NEUTROPHILS % 80.5 % (38.7-80.0); RED CELL DISTRIBUTION WIDTH 13.8 % (11.7-14.4)
[2025-07-05 20:08] LABS: INR 1.03
[2025-07-05 20:18] LABS: EST GLOMERULAR FILTRATION RATE 85.0 ML/MIN (>=60)
[2025-07-05] MEDS ORDERED: IOPAMIDOL 370 MG/ML 100 ML INFUS..BTL INJ ONE (20:31)
[2025-07-05] MEDS: SODIUM CHLORIDE 0.9% 1000ML 1,000 ML IV STA (21:14)
[2025-07-05] MEDS ORDERED: ONDANSETRON HCL INJ 2MG/ML 2ML 2 MG/ML VIAL IV PRN (21:30)
[2025-07-05] MEDS ORDERED: Morphine 2mg Syringe 2 MG/ML SYR IV PRN (21:30)
[2025-07-05 22:30] VITALS: PULSE 98; RESP 17; TEMP 98.3
[2025-07-05] MEDS: MECLIZINE HCL 12.5 MG TAB PO ONE (22:41)
[2025-07-05] MEDS: SODIUM CHLORIDE 0.9% 1000ML 1,000 ML IV SCH (22:42)
[2025-07-05 22:58] VITALS: BP 131/95; PULSE 111; RESP 20; TEMP 97.9; O2SAT 100
[2025-07-05] MEDS ORDERED: METOPROLOL SUCC25 MG PO (23:05)
[2025-07-05] MEDS ORDERED: LOSARTAN POTASS25 MG PO (23:06)
[2025-07-05] MEDS ORDERED: GLYBURIDE5 MG PO (23:08)
[2025-07-05] MEDS ORDERED: VITAMIN C1000 MG PO (23:11)
[2025-07-05] MEDS ORDERED: CLOPIDOGREL75 MG PO (23:11)
[2025-07-05 23:47] VITALS: BP 131/95; PULSE 111; RESP 20; TEMP 97.8; O2SAT 100
[2025-07-06] VITALS (8 sets, daily range): BP systolic 99–148; BP diastolic 66–105; PULSE 95–106; RESP 18–21; TEMP 97.7–98.7; O2SAT 97–100
[2025-07-06] MEDS ORDERED: MULTI-VITAMIN1 EACH PO (02:53)
[2025-07-06] MEDS ORDERED: one a day PO (02:53)
[2025-07-06 06:26] LABS: BASOPHILS % 0.7 % (0.0-1.0); EOSINOPHILS % 3.5 % (0.0-6.0); LYMPHOCYTES % 23.2 % (18.0-39.1); MONOCYTES % 9.9 % (4.4-11.3); NEUTROPHILS % 62.2 % (38.7-80.0); RED CELL DISTRIBUTION WIDTH 13.9 % (11.7-14.4)
[2025-07-06 06:45] LABS: EST GLOMERULAR FILTRATION RATE 95.0 ML/MIN (>=60)
[2025-07-06] MEDS: AMIODARONE HCL 200 MG TAB PO SCH (10:09)
[2025-07-06] MEDS: APIXABAN 5 MG TABLET PO SCH (10:09)
[2025-07-06] MEDS: CLOPIDOGREL BISULFATE 75 MG TAB PO SCH (10:09)
[2025-07-06] MEDS: LOSARTAN POTASSIUM 25 MG TAB PO SCH (10:10)
[2025-07-06] MEDS: METOPROLOL SUCCINATE 50 MG TAB XL PO SCH (10:10)
[2025-07-06 11:02] LABS: CHOL/HDL RATIO 4.2 (3.9-4.7); LDL CHOLESTEROL 56.0 MG/DL (60-130)
[2025-07-06] MEDS: POTASSIUM CHLORIDE 20 MEQ TAB CR PO ONE (12:24)
[2025-07-06] MEDS: POTASSIUM CHLORIDE 20 MEQ TAB CR PO SCH (15:11)
[2025-07-06] MEDS ORDERED: DEXTROSE 50% SYRINGE 50 ML IV PRN (19:00)
[2025-07-06] MEDS ORDERED: ONDANSETRON HCL INJ 2MG/ML 2ML 2 MG/ML VIAL IV PRN (19:15)
[2025-07-06] MEDS: PRAVASTATIN 20 MG TAB PO SCH (22:23)
[2025-07-06] MEDS: INSULIN LISPRO 100 UNIT/1 ML 3ML VIAL SQ SCH (22:53)
[2025-07-06] MEDS: ACETAMINOPHEN 325 MG TAB PO PRN (23:06)
[2025-07-07 03:18] VITALS: BP 125/83; PULSE 67; RESP 18; TEMP 97.4; O2SAT 97
[2025-07-07 08:00] VITALS: BP 144/105; PULSE 77; RESP 19; TEMP 98.5; O2SAT 98
[2025-07-07 09:00] VITALS: BP 144/105; PULSE 77; RESP 19; TEMP 98.5; O2SAT 98
[2025-07-07] MEDS: FUROSEMIDE 40 MG TAB PO SCH (09:46)
[2025-07-07 12:00] VITALS: BP 144/105; PULSE 85; RESP 18; TEMP 98.4; O2SAT 97
[2025-07-07] MEDS: LOSARTAN POTASSIUM 25 MG TAB PO SCH (14:15)
[2025-07-07 16:00] VITALS: BP 122/95; PULSE 96; RESP 20; TEMP 98.1; O2SAT 98
[2025-07-07] MEDS: AMIODARONE HCL 200 MG TAB PO SCH (16:31)
[2025-07-07 20:00] VITALS: BP 130/89; PULSE 93; RESP 18; TEMP 97.7
[2025-07-08 07:48] VITALS: BP 137/80; PULSE 87; RESP 20; TEMP 97.4; O2SAT 98
[2025-07-08 11:41] VITALS: BP 137/88; PULSE 87; RESP 16; TEMP 98.1; O2SAT 99
[2025-07-08 16:00] VITALS: BP 121/80; PULSE 110; RESP 16; TEMP 98.4; O2SAT 99
[2025-07-08 20:00] VITALS: BP 128/84; PULSE 92; RESP 17; TEMP 98; O2SAT 98
[2025-07-08 23:50] VITALS: BP 133/99; PULSE 101; RESP 17; TEMP 97.4; O2SAT 99
[2025-07-09 04:00] VITALS: BP 124/98; PULSE 90; RESP 17; TEMP 97.7; O2SAT 100
[2025-07-09 09:00] VITALS: BP 124/98; PULSE 90; RESP 17; TEMP 97.7; O2SAT 100
[2025-07-09 09:19] VITALS: BP 144/104; PULSE 90; RESP 18; TEMP 97.7; O2SAT 96
[2025-07-09 17:56] VITALS: BP 137/97; PULSE 75; RESP 17; TEMP 97.6; O2SAT 96
[2025-07-09 19:45] VITALS: BP 149/101; PULSE 96; RESP 18; TEMP 98.1; O2SAT 99
[2025-07-09 20:00] VITALS: BP 149/101; PULSE 96; RESP 18; TEMP 98.1; O2SAT 99
[2025-07-10 00:01] VITALS: BP 144/103; PULSE 101; RESP 18; TEMP 97.8; O2SAT 100
[2025-07-10 09:00] VITALS: BP 144/103; PULSE 101; RESP 18; TEMP 97.8; O2SAT 100
[2025-07-10] MEDS ORDERED: TOPROL XL50 MG PO (09:46)
[2025-07-10] MEDS ORDERED: AMIODARONE HCL200 MG PO (09:46)
[2025-07-10 10:25] VITALS: BP 131/102; PULSE 95; RESP 20; TEMP 97.7; O2SAT 99
[2025-07-10 12:17] VITALS: BP 131/86; PULSE 107; RESP 20; TEMP 97.5; O2SAT 99
== END 2025-07-10 12:15 | disposition home or self-care (01) | DRG 309 ==
LOC: ER 18:54 → ERHOLD 21:18 → MED/SURG3 22:12
PROVIDERS: ADMIT Internal Medicine; ATTEND Internal Medicine
DX: I48.19 Other persistent atrial fibrillation (principal); I50.22 Chronic systolic (congestive) heart failure; E66.01 Morbid (severe) obesity due to excess calories; I87.2 Venous insufficiency (chronic) (peripheral); H81.399 Other peripheral vertigo, unspecified ear; R11.2 Nausea with vomiting, unspecified; I11.0 Hypertensive heart disease with heart failure; I25.10 Atherosclerotic heart disease of native coronary artery without angina pectoris; E11.65 Type 2 diabetes mellitus with hyperglycemia; I95.9 Hypotension, unspecified; I65.23 Occlusion and stenosis of bilateral carotid arteries; E78.5 Hyperlipidemia, unspecified; Z79.01 Long term (current) use of anticoagulants; Z88.5 Allergy status to narcotic agent; Z88.0 Allergy status to penicillin; Z79.84 Long term (current) use of oral hypoglycemic drugs; Z79.82 Long term (current) use of aspirin; Z98.61 Coronary angioplasty status; Z79.02 Long term (current) use of antithrombotics/antiplatelets
CPT/HCPCS: 36415; 70450; 70496; 70498; 70551; 71045; 80053; 80061; 82550; 82948; 83036; 83690; 83880; 84443; 84484; 85025; 85610; 93005; 93306; 93880; 95812; 99284; J7030; Q9967